=== PATIENT | male | born 1955 | race Caucasian/White ===

== ENCOUNTER 2016-04-28 05:05 | Inpatient (IN) | payer MEDICARE ==
[~2016-04-28] VITALS: Ht 182.9 cm; Wt 147.4 kg
[~2016-04-28 05:05] MED LIST: ARTHROTEC EC 71 EACH PO; BUPROPION HCL100 M1 PO; BUSPAR10 MG PO; CARDURA8 MG PO; CITRACAL + D E1 EACH PO; CYTOTEC100 MCG PO; DILAUDID2 MG PO; FLINTSTONE1 TAB.CHEW PO; FUROSEMIDE40 MG PO; HYDROCODONE-APA1 TAB PO; METOPROLOL TART50 MG PO; NEURONTIN 300300 MG PO; OMEPRAZOLE40 MG PO; OXYCODONE HCL5 MG PO; PHENERGAN25 M1 PO; PRINIVIL20 MG PO; RESTORIL15 MG PO; VICTOZA0.6 MG/0.1 SQ; VITAMIN B-1000 MCG/M IM; VOLTAREN75 MG PO; WELLBUTRIN100 MG PO; ZANAFLEX2 M1; ZANAFLEX4 MG PO; ZYLOPRIM300 MG PO
[2016-04-28] MEDS ORDERED: OXYCONTIN15 MG PO (05:49)
[2016-04-28 06:11] VITALS: BMI 44.2
--- NOTE | 2016-04-28 06:35 | NUR ---
7733 PATIENT HAS HEALING SORES TO LEFT LOWER LEG AND ANKLE AND FOOT. TOLD SURGERY
[2016-04-28 06:47] LABS: BASOPHILS 0.5 % (0.0-2.0); EOSINOPHILS 3.1 % (0-7); HEMATOCRIT 38.6 % (42.0-54.0); HEMOGLOBIN 12.6 g/dL (13.5-17.5); IMMATURE GRANULOCYTES 0.3 % (0-5); MCH 31.5 pg (26.0-34.0); MCHC 32.6 g/dL (31.0-37.0); MCV 96.5 fL (80.0-100.0); MEAN PLATELET VOLUME 9.5 fL (7.4-10.4); MONOCYTES 9.5 % (2-11); NEUTROPHILS 60.6 % (40-80); PLATELET COUNT 218 10x3/uL (130-400); RDW 12.4 % (11.5-14.5); WBC 7.8 10x3/uL (4.8-10.8)
[2016-04-28 07:06] LABS: APTT 27.2 SECONDS (22.8-39.4); INR 0.99 (0.85-1.17); PROTIME 12.9 SECONDS (11.6-15.0)
[2016-04-28 07:07] LABS: CALC OSMOLALITY 280 mosm/kg (275-300); CALCIUM 9.1 mg/dL (8.5-10.1); CARBON DIOXIDE 34.8 mmol/L (21.0-32.0); CHLORIDE - SERUM 103 mmol/L (98-107); CREATININE - SERUM 0.9 mg/dL (0.6-1.3); GLUCOSE 102 mg/dL (74-106); POTASSIUM - SERUM 4.7 mmol/L (3.5-5.1); SODIUM 141 mmol/L (136-145); UREA NITROGEN 12 mg/dL (7-18); eGFR NON AFRICAN AMERICAN > 90 mL/min (90-120)
[2016-04-28 07:39] LABS: APPEARANCE CLEAR (CLEAR); BACTERIA MODERATE /hpf (NONE SEEN); BILIRUBIN NEGATIVE (NEGATIVE); COLOR YELLOW (YELLOW); EPITHELIAL CELLS RARE /hpf (0-5); GLUCOSE NEGATIVE (NEGATIVE); KETONE NEGATIVE (NEGATIVE); LEUKOCYTE ESTERASE TRACE (NEGATIVE); MUCUS <1+ /lpf (NONE SEEN); NITRITE NEGATIVE (NEGATIVE); PROTEIN NEGATIVE (NEGATIVE); RED CELLS - URINE 0-5 /hpf (0-5); SPECIFIC GRAVITY 1.015 (1.005-1.020); WHITE CELLS - URINE 0-5 /hpf (0-5)
[2016-04-28 12:51] VITALS: BP 130/85
--- NOTE | 2016-04-28 12:53 | NUR ---
RECIEVED FROM RR AWAKE AND ALERT ORINETED X3 VITALS WITH IN NORMAL LIMITS. LUNGS CLEAR BILATERALLY HRRR NO ACUTE DISTRESS NOTED GREGG CATHETER PATENT TO CLEAR YELLOW URINE.
--- NOTE | 2016-04-28 14:40 | NUR ---
PT FAMILY AT BEDSIDE GIVEN PAIN MEDS PER ORDER WILL MONITOR VS WNL PERIPHERIAL PULSES IN TACT BILATERALLY
[2016-04-28 15:35] VITALS: BP 148/90
--- NOTE | 2016-04-28 17:52 | NUR ---
NO DISTRESS NOTED VOICES ALL NEEDS SURGICAL DRESSING IN TACT PAIN CONTROLLED AT THIS TIME.
[2016-04-28 19:00] VITALS: BP 132/77
[2016-04-29] VITALS (7 sets, daily range): BP systolic 75–182; BP diastolic 44–98; Ht 182.9 cm; Wt 147.4 kg
[2016-04-29 07:08] LABS: ALBUMIN 2.9 g/dL (3.4-5.0); ANION GAP 11.5 mmol/L (8-16); BILIRUBIN - TOTAL 0.7 mg/dL (0.2-1.3); CALCIUM 8.2 mg/dL (8.5-10.1); CARBON DIOXIDE 29.2 mmol/L (21.0-32.0); CREATININE - SERUM 1.6 mg/dL (0.6-1.3); POTASSIUM - SERUM 4.7 mmol/L (3.5-5.1); PROTEIN - SERUM 5.5 g/dL (6.4-8.2)
[2016-04-29 07:10] LABS: BASOPHILS 0.1 % (0.0-2.0); EOSINOPHILS 0.1 % (0-7); HEMATOCRIT 34.2 % (42.0-54.0); HEMOGLOBIN 10.9 g/dL (13.5-17.5); IMMATURE GRANULOCYTES 0.4 % (0-5); LYMPHOCYTES 16.8 % (15-50); MCH 31.6 pg (26.0-34.0); MCHC 31.9 g/dL (31.0-37.0); MEAN PLATELET VOLUME 9.6 fL (7.4-10.4); MONOCYTES 7.7 % (2-11); NEUTROPHILS 74.9 % (40-80); PLATELET COUNT 207 10x3/uL (130-400); RBC 3.45 10x6/uL (4.20-6.10); RDW 12.8 % (11.5-14.5)
[2016-04-29 07:11] LABS: MCV 99.1 fL (80.0-100.0); WBC 13.6 10x3/uL (4.8-10.8)
--- NOTE | 2016-04-29 08:13 | NUR ---
PT AWAKE AND ALERT ORINETED X 3 LUNGS CLEAR BILAT USING INSENTIVE SPIROMETER WELL HAS GOOD INSPIRATORY EFFORT. CPM TO LEFT KNEE SURGICAL DRESSING STILL IN PLACE PEDAL PULESE INTACT TO BILAT. FEET. TOLERATES MEDS WELL HELD LOPRESSOR AND CARDURA B/P 86/53 ORDER PER JENELLE BARROW TO HOLD MEDS
--- NOTE | 2016-04-29 09:15 | NUR ---
PT AWAKE AND ALERT NOTED TO BE CLAMMY WITH PALLOR SKIN NOTED VANCOMYCIN INFUSING AT 125 ML/HR B/P CHECKED 71/38 LAID HEAD DOWN TO 30 DEGREES ELEVATED FEET SOME COMPLAINED OF VISION DISTURBANCES AND UNCLEAR THINKING. B/P 68/40 STARTED FLUID BOLUS 300 CC PER HR AFTER 10 MIN B/P 70/42 STILL CLAMMY RAPID RESPONSE CALLED AT 0930
--- NOTE | 2016-04-29 10:00 | NUR ---
1000 CC BOLUS GIVEN OVER 1 HR PT BP 90/60 MANUAL. PT AWAKE AND ALERT AT BEDSIDE.
--- NOTE | 2016-04-29 11:30 | NUR ---
PT B/P 78/44 MANUAL PRESSURE NO URINE NOTED TO GREGG NOTIFIED COT ASSEMBLER AND DR CORONADO OF CONDITION PT AWAKE AND PLESANT REMAINS AT SIDE.
--- NOTE | 2016-04-29 11:37 | NUR ---
Prescreen for IRF order received. Patient has [employer] Insurance & will require a Preauth prior to admit to IRF. Will begin Preauth process. Thank you for this referral! Rosemary Kirk RN Rehab [facility]
[2016-04-29 11:54] LABS: BASOPHILS 0.1 % (0.0-2.0); EOSINOPHILS 0.8 % (0-7); HEMOGLOBIN 9.9 g/dL (13.5-17.5); IMMATURE GRANULOCYTES 0.6 % (0-5); LYMPHOCYTES 21.6 % (15-50); MCH 31.4 pg (26.0-34.0); MCHC 31.9 g/dL (31.0-37.0); MCV 98.4 fL (80.0-100.0); MEAN PLATELET VOLUME 9.6 fL (7.4-10.4); MONOCYTES 8.6 % (2-11); NEUTROPHILS 68.3 % (40-80); PLATELET COUNT 205 10x3/uL (130-400); RBC 3.15 10x6/uL (4.20-6.10); RDW 12.9 % (11.5-14.5); WBC 13.4 10x3/uL (4.8-10.8)
--- NOTE | 2016-04-29 12:30 | NUR ---
NEW ORDER FOR 1 LITER FLUID BOLUS PRESSURE BAGGED IN
--- NOTE | 2016-04-29 13:00 | OP ---
PATIENT NAME: KRISHNA NICK MEDICAL RECORD: [id number] :56 LOCATION:D.[id number] ADMISSION DATE:04/28/16 SURGEON: CHARANJIT CORONADO MD DATE OF OPERATION: 04/28/2016 Orthopedic Surgery Operative Note PREOPERATIVE DIAGNOSIS: Bilateral degenerative arthritis of the knees. POSTOPERATIVE DIAGNOSIS: Bilateral degenerative arthritis of the knees. PROCEDURES: 1. Right total knee arthroplasty. 2. Left total knee arthroplasty. SURGEON: Charanjit Coronado MD ANESTHESIA: General. INTRAOPERATIVE COMPLICATIONS: None. SUMMARY OF PATHOLOGIC FINDINGS: The patient did have osteoarthritis of both medial joints as well as patellofemoral joint consistent with preop diagnosis. IMPLANTS USED: Tena triathlon total knee arthroplasty, size 7, distal femur bilaterally, size 9, polyethylene inserts bilaterally, size 7, tibial base plates bilaterally, size 36, patellar resurfacing implants bilaterally. OPERATIVE SUMMARY IN DETAIL: After obtaining the appropriate preoperative orthopedic surgery consent as well as anesthetic consultation, evaluation and clearance, the patient was brought to the operating room and placed in the operating table in supine position. After adequate general laryngeal mask airway was administered, tourniquet was placed about the proximal aspect of bilateral lower extremities. Bilateral lower extremities were then prepped and draped in a routine sterile fashion. Left leg was approached first. The left leg was elevated and exsanguinated, tourniquet inflated to 350 mmHg. Routine midline incision was taken down for paramedian arthrotomy. Distal femur was exposed. Soft tissue excision was done in the usual fashion. Distal femoral intramedullary guide hole was created for distal femoral intramedullary guided cuts. Having completed this, the proximal tibia was exposed in its entirety. Soft tissue was excised and intramedullary guide hole was again created for intramedullary guided proximal tibial cutting. The proximal tibia on the left side measurements were taken. Distal femoral chamfer cuts were made. Following this, trials were inserted, ranged and thought to be stable in all planes. Final distal femoral and proximal tibial preparations were made followed by excision of the arthritic surface of the patella and final patellar preparations were made followed by pulsatile lavage irrigation. Final components were cemented into place. After all excess cement was removed, after cement was allowed to harden, the knee was taken through a range of motion and found to be stable in all planes with good patellar tracking. Paramedian arthrotomy was closed with #2 Ethibond followed by #1 Vicryl, 2-0 Vicryl and skin sahra. This incision was then covered with sterile dressing. Tourniquet was deflated. Attention was then turned to the right side. The right side was elevated and exsanguinated, tourniquet inflated to 350 mmHg. Routine midline incision was taken down and paramedian arthrotomy was cut. Distal femur was exposed. Soft OPERATIVE REPORT [id number] KRISHNA NICK tissue excision was done in the usual fashion followed by distal intramedullary guide hole creation for distal intramedullary guided distal femoral cuts. Proximal tibia was then completely exposed. Soft tissue excision was followed by guidewire hole creation and proximal tibial cutting using intramedullary guidance. Measurements were again taken. Chamfer cuts were taken. Trials were put into place. The knee was taken through range of motion and found to be stable in all planes. Distal femoral and proximal tibial preparations were followed by excision of the articular aspect of the degenerative patella. Final patellar preparations were made followed by pulsatile lavage irrigation. This was then followed by implantation of the final components. All excess cement was removed. After the cement was allowed to harden, the knee was taken through a range of motion and found to be stable in all planes including patellofemoral excursion. The paramedian arthrotomy was closed with #2 Ethibond followed by #1 Vicryl, 2-0 Vicryl and skin sahra. Sterile dressings were applied. At this point, the right tourniquet was deflated. The patient was awakened, LMA was removed. He was taken to recovery room in stable condition. All final needle and sponge counts were correct. TRANSINT:[id number] Voice Confirmation ID: [id number] DOCUMENT ID: [id number] CHARANJIT CORONADO MD at 1300 CC: [id number] DICTATION DATE: 04/28/16 1159 MANAGER ATHLETICS: 04/28/16 1250 ADM IN [place] [id number] [place] [address]
[2016-04-29 14:32] LABS: ALBUMIN 2.7 g/dL (3.4-5.0); ANION GAP 10.7 mmol/L (8-16); BILIRUBIN - TOTAL 0.81 mg/dL (0.2-1.3); CALCIUM 7.8 mg/dL (8.5-10.1); CARBON DIOXIDE 30.8 mmol/L (21.0-32.0); CREATININE - SERUM 2.5 mg/dL (0.6-1.3); POTASSIUM - SERUM 4.5 mmol/L (3.5-5.1); PROTEIN - SERUM 5.1 g/dL (6.4-8.2)
[2016-04-29 14:48] LABS: HEMATOCRIT 29.2 % (42.0-54.0); HEMOGLOBIN 9.5 g/dL (13.5-17.5)
--- NOTE | 2016-04-29 15:05 | NUR ---
3RD LITER OF FLUID BEING PRESSURED IN AT THIS TIME 2ND IV SITED TO INSIDE OF RIGHT FORARM 20 GA STAT LABS DRAWN AT THAT TIME B/P 118/58 PER MANUAL CUFF HAS HAD TOTAL OUTPUT OF 40 CC
--- NOTE | 2016-04-29 15:20 | NUR ---
Rehab Note- Awaiting PT & OT Eval for PreAuth to [employer]. Continue to follow patient at this time. Rosemary Kirk RN Clinical Liaison, Rehab Care/[place]
--- NOTE | 2016-04-29 16:06 | NUR ---
Rehab Preauth cannot be submitted to [facility] until the PT and OT evals have been done and documented. At this time neither have been done. Rehab will follow up on Monday. Jennifer Mayorga RN Clinical Liaison, Rehab
--- NOTE | 2016-04-29 16:08 | NUR ---
LYING IN BED,WITHOUT DISTRESS.CALL LIGHT IN REACH
--- NOTE | 2016-04-29 16:30 | NUR ---
4TH LITER OF FLUID PRESSURING IN AT THIS TIME B/P 100/50 MANUAL
[2016-04-29 16:43] LABS: ALBUMIN 2.6 g/dL (3.4-5.0); ANION GAP 10.8 mmol/L (8-16); BILIRUBIN - TOTAL 0.7 mg/dL (0.2-1.3); CALCIUM 7.5 mg/dL (8.5-10.1); CARBON DIOXIDE 29.8 mmol/L (21.0-32.0); CREATININE - SERUM 2.6 mg/dL (0.6-1.3); POTASSIUM - SERUM 4.6 mmol/L (3.5-5.1); PROTEIN - SERUM 5.1 g/dL (6.4-8.2)
--- NOTE | 2016-04-29 17:00 | NUR ---
PT MAKING URINE AT THIS TIME IN GREGG DARK URINE CLEARING THE MORE VOIDING NOTED IN GREGG BAG. HAS HAD NO URINE OUTPUT ALL DAY UNTIL NOW
--- NOTE | 2016-04-29 18:20 | NUR ---
GREGG EMPTIED 850 ML URINE EMTIED FROM GREGG
--- NOTE | 2016-04-29 18:51 | NUR ---
B/P 108/52 MANUAL PRESSURE
[2016-04-30] VITALS: BP 104/71
--- NOTE | 2016-04-30 02:40 | NUR ---
ASSESSED AT THE BEGINNING OF THE SHIFT. PT IS ALERT AND ORIENTED, ABLE TO VERBALIZE NEEDS. REMAINS AT THE BEDSIDE. HIS BLOOD PRESSURE HAS REMAINED BETTER THIS EVENING BUT HIS PAIN IS NOT BEING CONTROLLED WELL. WE CALLED THE RENAL DOCTOR TO GET A PAIN MED THAT WOULD NOT WORK AGAINST HIS RENAL PROBLEMS AND HE HAS RECEIVED BUPRENEX ORDERED WHICH HE FEELS IS NOT HELPING THE PAIN. WE HAVE ALSO GIVEN HIM PERCOCET TO TRY AND KEEP HIM COMFORTABLE. HE IS ABLE TO MOVE ABOUT THE BED FOR COMFORT AND WE ASSIST IF HE NEEDS HELP WITH REPOSITIOONING. THE GREGG CATH IS PULLING ALOT OF URINE OFF AND IT IS CLEAR. THE BED IS LOW, RAILS UP X'S 2 WITH THE CALL LIGHT AT HAND.
[2016-04-30 04:00] VITALS: BP 180/98
[2016-04-30 05:12] LABS: BASOPHILS 0.1 % (0.0-2.0); EOSINOPHILS 0.2 % (0-7); HEMATOCRIT 30.9 % (42.0-54.0); HEMOGLOBIN 10.2 g/dL (13.5-17.5); IMMATURE GRANULOCYTES 0.3 % (0-5); LYMPHOCYTES 9.6 % (15-50); MCH 31.9 pg (26.0-34.0); MCV 96.6 fL (80.0-100.0); MEAN PLATELET VOLUME 9.6 fL (7.4-10.4); MONOCYTES 8.4 % (2-11); NEUTROPHILS 81.4 % (40-80); PLATELET COUNT 180 10x3/uL (130-400); RDW 12.4 % (11.5-14.5); WBC 13.7 10x3/uL (4.8-10.8)
[2016-04-30 05:23] LABS: % SATURATION 7 % (15-55); IRON 13 ug/dl (35-150); TOTAL IRON BIND CAPACITY 177 ug/dl (260-445); UNSAT IRON BIND CAPACITY 164 ug/dl (150-375)
[2016-04-30 05:37] LABS: CREATININE - URINE 38.7 mg/dL (30-125); PROTEIN - URINE 16.9 mg/dL (0.0-11.9)
[2016-04-30 05:41] LABS: ALBUMIN 2.6 g/dL (3.4-5.0); ANION GAP 9.8 mmol/L (8-16); BILIRUBIN - TOTAL 0.96 mg/dL (0.2-1.3); CARBON DIOXIDE 28.4 mmol/L (21.0-32.0); MAGNESIUM - SERUM 1.4 mg/dL (1.8-2.4); PHOSPHOROUS 2.8 mg/dL (2.5-4.9); POTASSIUM - SERUM 4.2 mmol/L (3.5-5.1); PROTEIN - SERUM 5.7 g/dL (6.4-8.2)
[2016-04-30 05:42] LABS: CREATININE - SERUM 1.1 mg/dL (0.6-1.3)
--- NOTE | 2016-04-30 07:30 | NUR ---
RECIEVED PT DURING WALKING ROUNDS PT IN BED WITH COMPLAINTS OF PAIN OF A 10 ON A SCALE OF 1-10. PAGED PUSHPA ALMANZAR FOR PAIN MEDICATION. ASSESSMENT DONE PER FLOWSHEET. BED IN LOW POSITION AND CALL LIGHT WITHIN REACH. WILL CONTINUE TO MONITOR.
[2016-04-30 08:25] VITALS: BP 170/83
--- NOTE | 2016-04-30 08:25 | NUR ---
RECIEVED ORDERS TO RESTART DILUADID CARD DECORATOR AND GIVE 1MG BOLUS OF DILAUDID. WILL ADMINISTER PER ORDER.
--- NOTE | 2016-04-30 08:50 | NUR ---
CPM ON BILATERAL LEGS AT THIS TIME.
--- NOTE | 2016-04-30 10:00 | NUR ---
REMOVED PREVIOUS IV IN THE RIGHT FOREARM DUE TO IRRITATION REPORTED BY THE PT. CATH INTACT, BED IN LOW POSITION AND CALL LIGHT WITHIN REACH. WILL CONTINUE TO MONITOR.
--- NOTE | 2016-04-30 12:25 | NUR ---
AWAKE AND ALERT. ORIENTED X3. NO C/O AT THIS TIME. DRESSING TO RIGHT KNEE IS DRY AND INTACT. REPORTS PAIN IMPROVED AT THIS TIME. DENIES NEEDS. AT BEDSIDE.
[2016-04-30 12:48] VITALS: BP 164/81
[2016-04-30 16:26] VITALS: BP 157/79
[2016-04-30 20:00] VITALS: BP 154/78
--- NOTE | 2016-04-30 20:14 | NUR ---
PT SEEN AND ASSESSED AT 1945. COMPLAINTS OF PAIN BILAT KNEES OF 7-STATES PBX MANAGER HELPS ALOT. ENCOURAGED PT TO PUSH BUTTON NEEDED. BOTH FEET WARM AND PINK AND ABLE TO MOVE TOES. IN CPM X 2 AT MOMENT. ICE NOTED TO BOTH KNEES. GREGG DRAINING YELLOW URINE. AT BEDSIDE
[2016-05-01] VITALS: BP 122/66
--- NOTE | 2016-05-01 00:49 | NUR ---
WAS MEDICATED WTIH APAP 650 MG D/T ELEVATED TEMP. WILL RECHECK IN ONE HOUR. C/L IN REACH AT BEDSIDE.
--- NOTE | 2016-05-01 01:40 | NUR ---
TEMP. WAS RECHECKED THIS TIME 98.5. REMAIN AT BEDSIDE. C/L IN REACH
[2016-05-01 04:00] VITALS: BP 149/78
[2016-05-01 06:22] LABS: BASOPHILS 0.1 % (0.0-2.0); EOSINOPHILS 0.8 % (0-7); HEMATOCRIT 29.8 % (42.0-54.0); HEMOGLOBIN 9.6 g/dL (13.5-17.5); IMMATURE GRANULOCYTES 0.3 % (0-5); LYMPHOCYTES 15.3 % (15-50); MCHC 32.2 g/dL (31.0-37.0); MCV 96.1 fL (80.0-100.0); NEUTROPHILS 75.5 % (40-80); PLATELET COUNT 197 10x3/uL (130-400); RDW 12.3 % (11.5-14.5); WBC 11.4 10x3/uL (4.8-10.8)
[2016-05-01 06:39] LABS: ALBUMIN 2.3 g/dL (3.4-5.0); ALKALINE PHOSPHATASE 49 U/L (46-116); ALT (SGPT) 17 U/L (10-68); BILIRUBIN - TOTAL 1.15 mg/dL (0.2-1.3); CALC OSMOLALITY 265 mosm/kg (275-300); CALCIUM 8.5 mg/dL (8.5-10.1); CARBON DIOXIDE 31.7 mmol/L (21.0-32.0); CHLORIDE - SERUM 101 mmol/L (98-107); GLUCOSE 112 mg/dL (74-106); POTASSIUM - SERUM 3.9 mmol/L (3.5-5.1); PROTEIN - SERUM 5.8 g/dL (6.4-8.2); SODIUM 133 mmol/L (136-145); UREA NITROGEN 11 mg/dL (7-18)
[2016-05-01 06:41] LABS: CREATININE - SERUM 0.8 mg/dL (0.6-1.3); eGFR NON AFRICAN AMERICAN > 90 mL/min (90-120)
--- NOTE | 2016-05-01 07:40 | NUR ---
PATIENT RECEIVED ALERT IN BED. CPM ON BILATERALLY. AT BEDSIDE. SIDE RAILS UP X2. BED IN LOW POSITION. CALL LIGHT IN REACH. WILL CONTINUE TO MONITOR.
[2016-05-01 07:56] VITALS: BP 164/85
--- NOTE | 2016-05-01 08:45 | NUR ---
PATIENT ALERT IN BED WITH PRESENT. NO SIGNS OF DISTRESS NOTED. SCHEDULED MEDICATION ADMINISTERED. PRESENT. SIDE RAILS UP X2. BED IN LOW POSITION. CALL LIGHT IN REACH.
--- NOTE | 2016-05-01 10:40 | NUR ---
SITTING UP IN CHAIR ALERT. GREGG D/C PER ORDER. 600CC URINE REMAINED IN COLLECTION BAG. CLEAN URINAL PROVIDED TO PATIENT.
--- NOTE | 2016-05-01 12:50 | NUR ---
PATIENT IN BED ALERT. NO SIGNS OF DISTRESS NOTED. CPM ON BILATERALLY. DENIES NEEDS. SIDE RAILS UP X2. BED IN LOW POSITION. CALL LIGHT AND MARINE ENGINE MACHINIST BUTTON IN REACH.
[2016-05-01 13:02] VITALS: BP 131/77
--- NOTE | 2016-05-01 14:30 | NUR ---
IV TO RIGHT HAND INFILTRATED. D/C BY YOUNG SIMONS. WARM COMPRESS APPLIED
--- NOTE | 2016-05-01 15:00 | NUR ---
20 GAUGE IV SITED TO RIGHT FOREARM X1 ATTEMPT. FLUSHES EASY WITH BRISK BLOOD RETURN PRESENT. SECURED WITH TAPE AND TEGADERM. IVF INFUSING WITHOUT DIFFICULTY.
--- NOTE | 2016-05-01 15:45 | NUR ---
IV TO RIGHT FOREARM LEAKING. IV D/C WITH CATH TIP INTACT. SITE COVERED WITH GAUZE AND TAPE. NEW 22 GAUGE IV SITED TO RIGHT UPPER ARM X1 ATTEMPT. FLUSHES EASY. BRISK BLOOD RETURN PRESENT. WELL TOLERATED. IVF INFUSING WITHOUT DIFFICULTY. WILL CONTINUE TO MONITOR.
[2016-05-01 15:56] VITALS: BP 170/63
--- NOTE | 2016-05-01 18:20 | NUR ---
PATIENT ASSISTED BACK TO BED FROM [facility] ASSIST X3. IV CAME OUT WITH CATH TIP INTACT.
--- NOTE | 2016-05-01 19:10 | NUR ---
REC'D IN BED AWAKE AND ALERT. RESP EVEN AND UNLABORED WITH NO DISTRESS NOTED. CAN MAKE NEEDS WANTS KNOWN. C/O PAIN RATING 7/10 ON PAIN SCALE. ASSESSMENT COMPLETED. AT BEDSIDE. DRESSING INTACT TO BILATERAL LOWER EXT. WILL CONTINUE TO OBSERVE FOR NEEDS. C/L IN REACH AT BEDSIDE.
[2016-05-01 21:00] VITALS: BP 154/85
--- NOTE | 2016-05-01 23:37 | NUR ---
WAS MEDICATED AT THIS TIME FOR C/O ENID KNEE PAIN WITH PERCOCET PER ORDERS. C/L AND AT BEDSIDE.
[2016-05-02 01:00] VITALS: BP 104/57
--- NOTE | 2016-05-02 03:42 | NUR ---
PT WAS MEDICATED WITH NORCO AT THIS TIME FOR C/O BILATERAL KNEE PAIN RATING 8/10 ON PAIN SCALE. REMAIN AT BEDSIDE. C/L IN REACH
[2016-05-02 04:00] VITALS: BP 154/81
--- NOTE | 2016-05-02 06:05 | NUR ---
PT IN BED WITH NO NEEDS. DRESSINGS TO BILATERAL KNEES C/D/I. SCD'S ON. CPM'S TO BILATERAL KNEES ON. PEDAL PULSES PRESENT. NO IV AT THIS TIME. TELEMETRY ON. FAMILY AT BEDSIDE. SIDE RAILS ARE UP X 2. BED IS LOW. CALL LIGHT IN REACH.
[2016-05-02 06:54] LABS: BASOPHILS 0.1 % (0.0-2.0); EOSINOPHILS 1.1 % (0-7); HEMOGLOBIN 8.8 g/dL (13.5-17.5); IMMATURE GRANULOCYTES 0.3 % (0-5); LYMPHOCYTES 15.8 % (15-50); MCH 31.4 pg (26.0-34.0); MCHC 32.6 g/dL (31.0-37.0); MCV 96.4 fL (80.0-100.0); MONOCYTES 6.1 % (2-11); NEUTROPHILS 76.6 % (40-80); PLATELET COUNT 227 10x3/uL (130-400); RDW 12.4 % (11.5-14.5); WBC 10.5 10x3/uL (4.8-10.8)
--- NOTE | 2016-05-02 07:05 | NUR ---
PATIENT RECEIVED ALERT IN BED. NO SIGNS OF DISTRESS NOTED. CPM ON BILATERALLY. C/O PAIN 01/08. SIDE RAILS UP X2. BED IN LOW POSITION. CALL LIGHT IN REACH. AT BEDSIDE.
--- NOTE | 2016-05-02 07:12 | NUR ---
1 TAB PERCOCET GIVEN PER PRN ORDER FOR PAIN 01/08. NO OTHER NEEDS VOICED. CALL LIGHT IN REACH.
[2016-05-02 07:21] LABS: ALBUMIN 2.2 g/dL (3.4-5.0); ALKALINE PHOSPHATASE 48 U/L (46-116); BILIRUBIN - TOTAL 1.08 mg/dL (0.2-1.3); CALCIUM 8.5 mg/dL (8.5-10.1); CARBON DIOXIDE 31.2 mmol/L (21.0-32.0); CHLORIDE - SERUM 103 mmol/L (98-107); CREATININE - SERUM 0.8 mg/dL (0.6-1.3); GLUCOSE 104 mg/dL (74-106); POTASSIUM - SERUM 3.9 mmol/L (3.5-5.1); PROTEIN - SERUM 5.7 g/dL (6.4-8.2); SODIUM 139 mmol/L (136-145); eGFR NON AFRICAN AMERICAN > 90 mL/min (90-120)
[2016-05-02 07:24] LABS: ALT (SGPT) 24 U/L (10-68); CALC OSMOLALITY 278 mosm/kg (275-300); UREA NITROGEN 15 mg/dL (7-18)
--- NOTE | 2016-05-02 08:03 | NUR ---
SITTING UP ON SIDE OF BED ALERT WITH PRESENT. NO SIGNS OF DISTRESS NOTED. SCHEDULED MEDICATION ADMINISTERED. DENIES NEEDS. SIDE RAILS UP X2. BED IN LOW POSITION. CALL LIGHT IN REACH.
[2016-05-02 08:36] VITALS: BP 131/80
--- NOTE | 2016-05-02 09:15 | NUR ---
* Is the patient Alert and Oriented? Yes 0 * How many steps to enter\exit or inside your home? 2 0 * PCP Dr. Miranda 0 * Pharmacy [facility] on [address] 0 * Preadmission Environment Home with Family 0 * ADLs Independent 0 * Equipment Cane Crutch Rolling Walker 0 * List name and contact numbers for known caregivers / representatives who currently or will assist patient after discharge: Spouse - Michelle Moody [phone] 0 * Additional services required to return to the preadmission environment? Yes 0 * Can the patient safely return to the preadmission environment? Yes 0 * Has this patient been hospitalized within the prior 30 days at any hospital? No 05/02/2016 9:16 DCP: Discharge Planning Patient Name: KRISHNA MOODY Admission Status: Elective Accout number: [id number] Admission Date: 04-28-2016 : 1955 Admission Diagnosis:BILATERAL PRIMARY OSTEOARTHRITIS OF KNEE Attending: ZACHARY Current LOS: 4 Anticipated DC Date: 05-03-2016 Planned Disposition: Inpatient Rehab Primary Insurance: [employer] CHOICE PPO [facility] Discharge Planning Comments: CM met with patient & spouse to assess dc plans/needs. Prior to admission, patient was independent with all ADL's & IADL's. He has a walker, cane & crutches at home. He will require rehab prior to discharging home. His first option is inpatient rehab here at [facility]. Prescreen in progress. Waiting on OT Eval. Once completed, rehab will submit screen for authorization - however, [employer] is closed until tomorrow for the Hol. Explained to them they need to be thinking about SNF's as well. CM will follow.
--- NOTE | 2016-05-02 11:27 | NUR ---
SITTING UP IN CHAIR AT BEDSIDE ALERT. NO SIGNS OF DISTRESS NOTED. C/O PAIN 01/08. 1 TAB PERCOCET PER PRN ORDER. ICE PACKS TO BILATERAL KNEES. NO FURTHER NEEDS VOICED. CALL LIGHT IN REACH. PRESENT
[2016-05-02 12:28] VITALS: BP 118/65
--- NOTE | 2016-05-02 12:50 | NUR ---
PATIENT ALERT IN BED. C/O NAUSEA. ZOFRAN ADMINISTERED PER PRN ORDER. NO FURTHER NEEDS VOICED. SIDE RAILS UP X2. BED IN LOW POSITION. CALL LIGHT IN REACH. AT BEDSIDE.
--- NOTE | 2016-05-02 14:52 | NUR ---
ALERT IN BED WATCHING TV. NO SIGNS OF DISTRESS NOTED. C/O PAIN 01/08. 1 TAB NORCO ADMINISTERED PER PRN ORDER. SIDE RAILS UP X2. BED IN LOW POSITION. CALL LIGHT IN REACH.
--- NOTE | 2016-05-02 15:50 | NUR ---
BILATERAL CPM PLACED ON PATIENT AT THIS TIME. DENIES NEEDS. PRESENT. SIDE RAILS UP X3. BED IN LOW POSITION. CALL LIGHT IN REACH.
[2016-05-02 16:03] LABS: APPEARANCE CLEAR (CLEAR); BILIRUBIN NEGATIVE (NEGATIVE); COLOR DK YELLOW (YELLOW); GLUCOSE NEGATIVE (NEGATIVE); KETONE NEGATIVE (NEGATIVE); LEUKOCYTE ESTERASE TRACE (NEGATIVE); NITRITE NEGATIVE (NEGATIVE); PROTEIN NEGATIVE (NEGATIVE)
--- NOTE | 2016-05-02 16:03 | NUR ---
All information was submitted to [facility] for a inpatient rehab authorization. The Jacqueline Saldana has been made aware. Jennifer Mayorga RN Clinical Liaison, Rehab
[2016-05-02 16:05] LABS: BACTERIA MODERATE /hpf (NONE SEEN); EPITHELIAL CELLS 0-5 /hpf (0-5); GRANULAR CAST OCC /lpf (NONE SEEN); HYALINE CAST 0-5 /lpf (NONE SEEN); MUCUS >1+ /lpf (NONE SEEN); RED CELLS - URINE 0-5 /hpf (0-5)
[2016-05-02 16:45] VITALS: BP 131/63
--- NOTE | 2016-05-02 17:15 | NUR ---
PATIENT ALERT IN BED. NO SIGNS OF DISTRESS NOTED. 1 TAB PERCOCET ADMINISTERED PER PRN ORDER. NO FURTHER NEEDS VOICED. SIDE RAILS UP X2. BED IN LOW POSITION. CALL LIGHT IN REACH.
--- NOTE | 2016-05-02 19:31 | NUR ---
PATIENT LYING FLAT WITH FAMILY AT BEDSIDE. PATIENT STATED HIS PAIN IS AN 8. PAIN MEDS GIVEN.
[2016-05-02 21:00] VITALS: BP 163/86
[2016-05-03 01:00] VITALS: BP 124/53
[2016-05-03 04:00] VITALS: BP 144/74
[2016-05-03 05:08] LABS: BASOPHILS 0.4 % (0.0-2.0); EOSINOPHILS 2.6 % (0-7); HEMATOCRIT 26.9 % (42.0-54.0); IMMATURE GRANULOCYTES 0.3 % (0-5); LYMPHOCYTES 18.8 % (15-50); MCHC 33.5 g/dL (31.0-37.0); MCV 95.7 fL (80.0-100.0); MEAN PLATELET VOLUME 9.6 fL (7.4-10.4); MONOCYTES 7.3 % (2-11); NEUTROPHILS 70.6 % (40-80); PLATELET COUNT 269 10x3/uL (130-400); RBC 2.81 10x6/uL (4.20-6.10); RDW 12.4 % (11.5-14.5); WBC 9.7 10x3/uL (4.8-10.8)
[2016-05-03 05:23] LABS: ALBUMIN 2.3 g/dL (3.4-5.0); ALKALINE PHOSPHATASE 49 U/L (46-116); BILIRUBIN - TOTAL 1.47 mg/dL (0.2-1.3); CALC OSMOLALITY 280 mosm/kg (275-300); CALCIUM 8.6 mg/dL (8.5-10.1); CARBON DIOXIDE 31.3 mmol/L (21.0-32.0); CHLORIDE - SERUM 103 mmol/L (98-107); CREATININE - SERUM 0.8 mg/dL (0.6-1.3); GLUCOSE 102 mg/dL (74-106); POTASSIUM - SERUM 3.6 mmol/L (3.5-5.1); PROTEIN - SERUM 5.9 g/dL (6.4-8.2); SODIUM 140 mmol/L (136-145); UREA NITROGEN 17 mg/dL (7-18); eGFR NON AFRICAN AMERICAN > 90 mL/min (90-120)
[2016-05-03 05:38] LABS: ALT (SGPT) 34 U/L (10-68)
--- NOTE | 2016-05-03 07:30 | NUR ---
RECIEVED PT DURING WALKING ROUNDS. PT ON CMP AT THIS TIME. COMPLAINTS OF PAIN OF A 10 ON A SCALE OF 1-10. PAIN MEDICATION TO BE GIVEN PER ORDER. ASSESSMENT DONE PER FLOWSHEET. BED IN LOW POSITION AND CALL LIGHT WITHIN REACH. WILL CONTINUE TO MONITOR.
[2016-05-03 08:00] VITALS: BP 160/86
--- NOTE | 2016-05-03 10:30 | NUR ---
PT SITTING UP IN CHAIR. HAD PT USE INCENTICE SPIROMETER WHILE NURSE WAS IN THE ROOM. PT USED CORRECTLY. CALL LIGHT WITHIN REACH. WILL CONTINUE TO MONITOR.
[2016-05-03 11:44] VITALS: BP 122/74
--- NOTE | 2016-05-03 15:32 | NUR ---
PT SEEN FOR OFFICE ASSOCIATE. COMPLAINING OF PAIN TO BILAT KNEES 01/08. BILAT DRESSINGS TO KNEES ARE BOTH CLEAN DRY AND INTACT. ABLE TO MOVE FEET WELL-BILAT FEET AND TOES WARM AND PINK. CALL LIGHT IN PLACE. AT BEDSIDE
[2016-05-03 15:58] VITALS: BP 147/78
--- NOTE | 2016-05-03 16:56 | NUR ---
Rehab Note- Continue to follow at this time. Awaiting PreAuth from [employer]. Faxed OT Eval this AM. Message left from Siomara with [employer] stating that other clinical information had not been received on patient which was faxed on 05/02/16 after PT eval was completed. Refaxed all requested information to [phone]. Continue to await PreAuth for IRF stay. Thank you. Rosemary Kirk RN Clinical Liaison, Rehab Care/[facility]
--- NOTE | 2016-05-03 18:35 | NUR ---
CPM MACHINE ON AT THIS TIME ON BILATERAL KNEES. WILL CONTINUE TO MONITOR.
--- NOTE | 2016-05-03 19:55 | NUR ---
PATIENT STATED HE WAS HAVING PAIN 12/08. I BROUGHT THE PATIENT A PAIN PILL.
[2016-05-03 21:00] VITALS: BP 157/88
[2016-05-04 01:00] VITALS: BP 152/78
[2016-05-04 07:55] VITALS: BP 137/62
[2016-05-04] MEDS ORDERED: ELIQUIS2.5 MG PO (08:19)
[2016-05-04] MEDS ORDERED: HYDROCODONE-APA1 TAB PO (08:24)
--- NOTE | 2016-05-04 08:37 | NUR ---
PT SEEN AT 0745-COMPLAINS OF MILD PAIN TO BILAT KNEES. TOO EARLY FOR PAIN MEDS BUT WILL MONITOR. DRESSINGS TO BILAT KNEES CLEAN DRY AND INTACT. BOTH KNEES IN CPM AT MOMENT. HOPING FOR DISCHARGE TO REHAB TODAY. SPOUSE ASLEEP IN ROOM. CALL LIGHT IN REACH
[2016-05-04 12:05] VITALS: BP 161/68
[2016-05-04 13:09] LABS: BASOPHILS 0.4 % (0.0-2.0); EOSINOPHILS 2.3 % (0-7); HEMATOCRIT 28.6 % (42.0-54.0); HEMOGLOBIN 9.2 g/dL (13.5-17.5); IMMATURE GRANULOCYTES 0.4 % (0-5); LYMPHOCYTES 13.9 % (15-50); MCH 31.5 pg (26.0-34.0); MCHC 32.2 g/dL (31.0-37.0); MEAN PLATELET VOLUME 9.7 fL (7.4-10.4); RBC 2.92 10x6/uL (4.20-6.10); RDW 12.6 % (11.5-14.5); WBC 10.1 10x3/uL (4.8-10.8)
[2016-05-04 13:25] LABS: MCV 97.9 fL (80.0-100.0); PLATELET COUNT 349 10x3/uL (130-400)
[2016-05-04 13:30] LABS: ALBUMIN 2.5 g/dL (3.4-5.0); ALKALINE PHOSPHATASE 56 U/L (46-116); ALT (SGPT) 36 U/L (10-68); CALC OSMOLALITY 279 mosm/kg (275-300); CALCIUM 8.6 mg/dL (8.5-10.1); CARBON DIOXIDE 31.8 mmol/L (21.0-32.0); CHLORIDE - SERUM 101 mmol/L (98-107); CREATININE - SERUM 0.8 mg/dL (0.6-1.3); GLUCOSE 121 mg/dL (74-106); POTASSIUM - SERUM 3.9 mmol/L (3.5-5.1); PROTEIN - SERUM 5.4 g/dL (6.4-8.2); SODIUM 139 mmol/L (136-145); UREA NITROGEN 14 mg/dL (7-18); eGFR NON AFRICAN AMERICAN > 90 mL/min (90-120)
--- NOTE | 2016-05-04 15:16 | NUR ---
05/04/2016 15:11 DCP: Discharge Planning Rec'd call from Rosemary with [facility] inpatient rehab - [facility] has denied authorization for inpatient rehab. Discussed with patient & spouse - they want to go home with home health. Call placed to I[facility]. Orders rec'd for home health & DME. RAYRAY signed for [facility]. Referral faxed & called to Dayanara with [facility]. CPM ordered through [facility] & will be delivered this evening to the home.
[2016-05-04 15:38] VITALS: BP 162/44
--- NOTE | 2016-05-04 18:15 | NUR ---
PT DISCHARGED PER WHEELCHAIR WITH WALKER TO FRONT DOOR WITH BELONGINGS
== END 2016-05-04 18:16 | disposition home health service (06) | DRG 461 ==
LOC: D.MS 05:05 → D.SDCHOLD 05:05 → D.MS 12:12
PROVIDERS: Family Medicine; Family Medicine Adult Medicine; Internal Medicine Nephrology; ADMIT Orthopaedic Surgery
PROC: 0SRC0J9 Replacement of Right Knee Joint with Synthetic Substitute, Cemented, Open Approach (ICD-10-PCS; 2016-04-28)
PROC: 0SRD0J9 Replacement of Left Knee Joint with Synthetic Substitute, Cemented, Open Approach (ICD-10-PCS; principal; 2016-04-28 07:30)
DX: M17.0 Bilateral primary osteoarthritis of knee (principal); N17.0 Acute kidney failure with tubular necrosis; D62 Acute posthemorrhagic anemia; Z68.41 Body mass index [BMI] 40.0-44.9, adult; I10 Essential (primary) hypertension; G47.33 Obstructive sleep apnea (adult) (pediatric); I95.89 Other hypotension; E66.9 Obesity, unspecified

== ENCOUNTER → 2017-12-13 10:50 | Outpatient (CLI) | payer MEDICARE ==
[2016-04-29 13:33] VITALS: BMI 44.1
[~2017-12-13 10:50] MED LIST changes: +ELIQUIS2.5 MG PO; +OXYCONTIN15 MG PO
== END | disposition home or self-care (01) ==
LOC: D.US 12-11 09:00
DX: E40 Kwashiorkor (principal); R80.2 Orthostatic proteinuria, unspecified; N28.1 Cyst of kidney, acquired; Z68.42 Body mass index [BMI] 45.0-49.9, adult

== ENCOUNTER 2018-01-29 17:38 | Observation (INO) | payer MEDICARE ==
[~2018-01-29] VITALS: Ht 182.9 cm; Wt 146.8 kg
[2018-01-29 18:08] LABS: BASOPHILS 0.5 % (0-2); EOSINOPHILS 1.5 % (0-7); HEMATOCRIT 33.6 % (42.0-54.0); HEMOGLOBIN 11.2 g/dL (13.5-17.5); IMMATURE GRANULOCYTES 1.3 % (0-5); LYMPHOCYTES 18.6 % (15-50); MCH 32.3 pg (26.0-34.0); MCHC 33.3 g/dL (31.0-37.0); MCV 96.8 fL (80.0-100.0); MONOCYTES 6.7 % (2-11); NEUTROPHILS 71.4 % (40-80); RBC 3.47 10x6/uL (4.20-6.10); RDW 14.1 % (11.5-14.5); WBC 14.3 10x3/uL (4.8-10.8)
[2018-01-29 18:11] LABS: PLATELET COUNT 487 10x3/uL (130-400)
[2018-01-29 18:16] LABS: PROTIME 12.8 SECONDS (11.6-15.0)
[2018-01-29 18:18] LABS: D-DIMER-QUANTITATIVE 1.51 ug/mLFEU (0.20-0.54)
[2018-01-29 18:27] LABS: ALBUMIN 3.3 g/dL (3.4-5.0); ALKALINE PHOSPHATASE 83 U/L (46-116); ALT (SGPT) 29 U/L (10-68); BILIRUBIN - TOTAL 0.19 mg/dL (0.2-1.3); CALC OSMOLALITY 272 mosm/kg (275-300); CALCIUM 9.1 mg/dL (8.5-10.1); CARBON DIOXIDE 29.2 mmol/L (21.0-32.0); CHLORIDE - SERUM 100 mmol/L (98-107); CREATININE - SERUM 1.7 mg/dL (0.6-1.3); GLUCOSE 106 mg/dL (74-106); POTASSIUM - SERUM 4.6 mmol/L (3.5-5.1); PROTEIN - SERUM 6.9 g/dL (6.4-8.2); SODIUM 136 mmol/L (136-145); UREA NITROGEN 15 mg/dL (7-18); eGFR NON AFRICAN AMERICAN 44 mL/min (90-120)
[2018-01-29 18:40] LABS: C-REACTIVE PROTEIN 1.4 mg/dL (0.0-0.9); CKMB 1.4 U/L (0.0-3.6); CREATINE KINASE 47 UL (21-232); PRO BNP 128 pg/mL (0-125); THYROID STIMULATING HORMONE 2.02 uIU/mL (0.36-3.74); TROPONIN-I < 0.017 ng/mL (0.000-0.060)
[2018-01-29 19:16] VITALS: BP 154/71
[2018-01-29 20:43] VITALS: BP 162/80
[2018-01-29 20:57] LABS: APPEARANCE CLEAR (CLEAR); BILIRUBIN NEGATIVE (NEGATIVE); COLOR YELLOW (YELLOW); GLUCOSE NEGATIVE (NEGATIVE); KETONE NEGATIVE (NEGATIVE); NITRITE NEGATIVE (NEGATIVE); PROTEIN NEGATIVE (NEGATIVE); SPECIFIC GRAVITY 1.015 (1.005-1.020); UROBILINOGEN NORMAL (NORMAL)
[2018-01-29] MEDS ORDERED: LYRICA300 MG PO (22:59)
[2018-01-29] MEDS ORDERED: NORVASC5 MG PO (23:02)
[2018-01-30] VITALS (8 sets, daily range): BP systolic 133–168; BP diastolic 70–95; Ht 182.9 cm; Wt 146.8 kg
[2018-01-30] MEDS ORDERED: LISINOPRIL10 MG PO (00:09)
[2018-01-30] MEDS ORDERED: BREO ELLIPTA 21 EACH (00:10)
[2018-01-30] MEDS ORDERED: EPITOL200 MG PO (00:12)
[2018-01-30] MEDS ORDERED: PROMACTA25 MG PO (00:15)
[2018-01-30 00:55] LABS: CKMB 1.5 U/L (0.0-3.6); CREATINE KINASE 48 UL (21-232); TROPONIN-I < 0.017 ng/mL (0.000-0.060)
[2018-01-30 06:57] LABS: CALC OSMOLALITY 273 mosm/kg (275-300); CALCIUM 8.6 mg/dL (8.5-10.1); CARBON DIOXIDE 28.4 mmol/L (21.0-32.0); CHLORIDE - SERUM 103 mmol/L (98-107); CKMB 1.4 U/L (0.0-3.6); CREATINE KINASE 49 UL (21-232); GLUCOSE 104 mg/dL (74-106); POTASSIUM - SERUM 4.4 mmol/L (3.5-5.1); SODIUM 137 mmol/L (136-145); TROPONIN-I < 0.017 ng/mL (0.000-0.060); UREA NITROGEN 12 mg/dL (7-18); eGFR NON AFRICAN AMERICAN 81 mL/min (90-120)
[2018-01-30 07:22] LABS: BASOPHILS 0.5 % (0-2); EOSINOPHILS 2.4 % (0-7); HEMATOCRIT 32.2 % (42.0-54.0); HEMOGLOBIN 10.8 g/dL (13.5-17.5); IMMATURE GRANULOCYTES 1.4 % (0-5); LYMPHOCYTES 22.4 % (15-50); MCH 32.4 pg (26.0-34.0); MCHC 33.5 g/dL (31.0-37.0); MCV 96.7 fL (80.0-100.0); MONOCYTES 6.3 % (2-11); PLATELET COUNT 494 10x3/uL (130-400); RBC 3.33 10x6/uL (4.20-6.10); RDW 14.2 % (11.5-14.5)
[2018-01-30] MEDS ORDERED: OXYCODONE-APAP1 TAB PO (11:00)
== END 2018-01-30 13:34 | disposition home or self-care (01) ==
LOC: D.ER 17:38 → D.M2 21:59 → OBSVTIME 21:59 → D.M2 01-30 13:34
PROVIDERS: Family Medicine
DX: I95.9 Hypotension, unspecified (principal); E86.0 Dehydration; D64.9 Anemia, unspecified; F32.9 Major depressive disorder, single episode, unspecified; F41.9 Anxiety disorder, unspecified; G62.9 Polyneuropathy, unspecified; I10 Essential (primary) hypertension

== ENCOUNTER → 2018-05-25 09:29 | Outpatient (CLI) | payer MEDICARE ==
[2018-01-30 00:25] VITALS: BMI 43.9
[~2018-05-25 09:29] MED LIST changes: +BREO ELLIPTA 21 EACH; +EPITOL200 MG PO; +LISINOPRIL10 MG PO; +LYRICA300 MG PO; +NORVASC5 MG PO; +OXYCODONE-APAP1 TAB PO; +PROMACTA25 MG PO
== END | disposition home or self-care (01) ==
LOC: D.MRI 09:29
DX: M25.552 Pain in left hip (principal)

== ENCOUNTER → 2018-05-29 17:21 | Outpatient (CLI) | payer MEDICARE ==
[2018-01-30 00:25] VITALS: BMI 43.9
[~2018-05-29 17:21] MED LIST changes: +BACTROBAN NASAL1 GM NASAL; +CENTRUM MEN'S1 EACH PO; +CLARITIN 10 MG10 MG PO; +FLOMAX0.4 MG PO; +FUROSEMIDE20 MG PO; +HYDROCODON-ACE1 EA10 PO; +PROSCAR5 MG PO; +ROXICODONE15 MG PO
== END | disposition home or self-care (01) ==
LOC: D.LABREF 17:21
DX: M16.12 Unilateral primary osteoarthritis, left hip (principal); Z11.8 Encounter for screening for other infectious and parasitic diseases

== ENCOUNTER 2018-06-12 07:56 | Inpatient (IN) | payer MEDICARE, OTHER ==
[~2018-06-12] VITALS: Ht 180.3 cm; Wt 149.7 kg
[~2018-06-12 07:56] MED LIST changes: -BACTROBAN NASAL1 GM NASAL; -CENTRUM MEN'S1 EACH PO; -CLARITIN 10 MG10 MG PO; -FLOMAX0.4 MG PO; -FUROSEMIDE20 MG PO; -HYDROCODON-ACE1 EA10 PO; -PROSCAR5 MG PO; -ROXICODONE15 MG PO
[2018-06-20] MEDS ORDERED: ROXICODONE15 MG PO (10:55)
[2018-06-20] MEDS ORDERED: EPITOL200 MG PO (10:56)
[2018-06-20] MEDS ORDERED: CARDURA8 MG PO (10:57)
[2018-06-20] MEDS ORDERED: PHENERGAN25 M1 PO (10:58)
[2018-06-20] MEDS ORDERED: CENTRUM MEN'S1 EACH PO (10:58)
[2018-06-20] MEDS ORDERED: FUROSEMIDE20 MG PO (10:58)
[2018-06-20] MEDS ORDERED: BACTROBAN NASAL1 GM NASAL (10:59)
[2018-06-20] MEDS ORDERED: CLARITIN 10 MG10 MG PO (10:59)
[2018-06-20 12:24] LABS: ANION GAP 12.6 mmol/L (8-16); CALCIUM 8.4 mg/dL (8.5-10.1); CARBON DIOXIDE 29.3 mmol/L (21.0-32.0); CREATININE - SERUM 1.1 mg/dL (0.6-1.3); POTASSIUM - SERUM 4.9 mmol/L (3.5-5.1)
[2018-06-20 12:26] LABS: BASOPHILS 0.3 % (0-2); EOSINOPHILS 1.6 % (0-7); HEMATOCRIT 39.2 % (42.0-54.0); HEMOGLOBIN 13.6 g/dL (13.5-17.5); IMMATURE GRANULOCYTES 0.4 % (0-5); LYMPHOCYTES 22.5 % (15-50); MCH 31.8 pg (26.0-34.0); MCHC 34.7 g/dL (31.0-37.0); MCV 91.6 fL (80.0-100.0); MEAN PLATELET VOLUME 9.4 fL (7.4-10.4); MONOCYTES 8.8 % (2-11); NEUTROPHILS 66.4 % (40-80); RBC 4.28 10x6/uL (4.20-6.10); RDW 13.9 % (11.5-14.5); WBC 7.9 10x3/uL (4.8-10.8)
[2018-06-20 12:29] LABS: PLATELET COUNT 196 10x3/uL (130-400)
[2018-06-20 12:37] LABS: APTT 27.7 SECONDS (22.8-39.4); INR 0.96 (0.85-1.17); PROTIME 12.3 SECONDS (11.6-15.0)
[2018-06-20 13:00] LABS: APPEARANCE HAZY (CLEAR); COLOR DK YELLOW (YELLOW); SPECIFIC GRAVITY 1.015 (1.005-1.020)
[2018-06-20 13:01] LABS: BACTERIA MODERATE /hpf (NONE SEEN); BILIRUBIN NEGATIVE (NEGATIVE); EPITHELIAL CELLS 0-5 /hpf (0-5); GLUCOSE NEGATIVE (NEGATIVE); HYALINE CAST 0-5 /lpf (NONE SEEN); KETONE NEGATIVE (NEGATIVE); MUCUS >1+ /lpf (NONE SEEN); NITRITE NEGATIVE (NEGATIVE); PROTEIN NEGATIVE (NEGATIVE); UROBILINOGEN NORMAL (NORMAL); WAXY CAST RARE /lpf (NONE SEEN); WHITE CELLS - URINE 0-5 /hpf (0-5)
[2018-06-25 11:06] VITALS: BMI 46.1
--- NOTE | 2018-06-25 14:13 | NUR ---
PLASMA BLADE SET 6/8 BOVIE PAD LEFT FLANK [id number] EXP 12/02/2019
[2018-06-25 16:23] VITALS: BP 150/79
--- NOTE | 2018-06-25 16:40 | NUR ---
PATIENT IN BED WITH IV INTACT. RECIEVED PAIN PILL AT THIS TIME. DRESSING TO LEFT HIP CDI. NO COMPLAINTS. CALL LIGHT WITHIN REACH.
--- NOTE | 2018-06-25 17:11 | NUR ---
SCDS PLACED ON PATIENT AND WORKING.
[2018-06-25 17:15] VITALS: Ht 180.3 cm; Wt 149.7 kg
--- NOTE | 2018-06-25 18:45 | NUR ---
PATIENT IN BED WITH IV INTACT. NO COMPLAINTS OR SIGNS OF DISTRESS. FAMILY AT BEDSIDE. CALL LIGHT WITHIN REACH.
[2018-06-25 20:31] VITALS: BP 145/77
--- NOTE | 2018-06-25 21:12 | NUR ---
REC'D. STATES UNABLE TO VOID ONLY VOIDED A TRICKLE POST OP.BLADDER SCANNER UNAVAILABLE. #16 INDWELLING GREGG INSERTED WITHOUT DIFFICULTY. IMMEDIATE RETURN OF 1000CC LITE YELLOW URINE.STATES FEELS BETTER. NOW. GREGG CLAMPED.DRSG. DRY AND INTACT LEFT HIP ICE INTACT. FOOT PINK AND WARM,PEDAL PULSE PRESENT. WIGGLES TOES AND DORSIFLEXES WITHOUT DIFFICULTY WILL CONTINUE TO MONITOR FOR ANY CHGES. IN NEUROVASCULAR STATUS AND FOLLOW CURRENT PLAN OF CARE
[2018-06-26 04:54] VITALS: BP 162/66
[2018-06-26 07:14] LABS: HEMATOCRIT 29.7 % (42.0-54.0); HEMOGLOBIN 10.1 g/dL (13.5-17.5); MEAN PLATELET VOLUME 9.2 fL (7.4-10.4); RBC 3.16 10x6/uL (4.20-6.10); RDW 13.6 % (11.5-14.5); WBC 8.4 10x3/uL (4.8-10.8)
[2018-06-26 08:45] VITALS: BP 133/72
[2018-06-26 13:00] VITALS: BP 92/46
--- NOTE | 2018-06-26 14:16 | NUR ---
GOLF COURSE LABORER NOTES - LEFT TOTAL HIP YESTERDAY, PAIN OF 7/10, MEDICATED PER ORDERS, WILL MONITOR. IV TO RIGHT HAND, PATENT, DRESSING CLEAN DRY AND INTACT. BED LOW, CALL LIGHT IN REACH. NO OTHER NEEDS
[2018-06-26 16:45] VITALS: BP 101/54
--- NOTE | 2018-06-26 18:29 | NUR ---
PT RESTING EYES CLOSED NO SIGNS OF DISTRESS NOTED, FAMILY AT BEDSIDE CL IN REACH
[2018-06-26 21:57] VITALS: BP 89/39
[2018-06-27 05:08] VITALS: BP 143/17
[2018-06-27 07:23] LABS: HEMATOCRIT 31.1 % (42.0-54.0); HEMOGLOBIN 10.5 g/dL (13.5-17.5); MCH 31.3 pg (26.0-34.0); MCHC 33.8 g/dL (31.0-37.0); MCV 92.8 fL (80.0-100.0); MEAN PLATELET VOLUME 9.4 fL (7.4-10.4); RBC 3.35 10x6/uL (4.20-6.10); WBC 10.5 10x3/uL (4.8-10.8)
--- NOTE | 2018-06-27 07:51 | NUR ---
PATIENT IN BED WITH EYES CLOSED RESTING QUIETLY. NO COMPLAINTS OR SIGNS OF DISTRESS. CALL LIGHT WITHIN REACH.
--- NOTE | 2018-06-27 07:57 | NUR ---
PATIENT RESTING QUIETLY, SPOUSE AT BEDSIDE. RESP EVEN AND UNLABORED, NO DISTRESS NOTED.
--- NOTE | 2018-06-27 08:05 | NUR ---
AT 209906/26/18 BP 98/50 REQUESTING PAIN MED TOLD ADDITIONAL SEDATIVE WILL LOWER BP MORE POSSIBLE CAUSE SERIOUS SIDE EFFECTS FROM BEING OVER MEDICATED
[2018-06-27 08:38] VITALS: BP 143/77
--- NOTE | 2018-06-27 10:17 | OP ---
PATIENT NAME: KRISHNA NICK MEDICAL RECORD: [id number] :57 LOCATION:D.[id number] ADMISSION DATE:06/25/18 SURGEON: CHARANJIT CORONADO MD DATE OF OPERATION: 06/25/2018 PREOPERATIVE DIAGNOSIS: Degenerative arthritis of the left hip. POSTOPERATIVE DIAGNOSIS: Degenerative arthritis of the left hip. PROCEDURE: Left total hip arthroplasty. SURGEON: Charanjit Coronado MD ANESTHESIA: General. CERTIFIED RESIDENTIAL MEDICATION AIDE: CHRISTOPHER Brown INTRAOPERATIVE COMPLICATIONS: None. SUMMARY OF PATHOLOGIC FINDINGS: The patient had severe degenerative arthritis of the left hip consistent with the preoperative diagnosis. IMPLANTS USED: Trident II Tritanium cluster hole shell size 54 alpha code E, 36 mm 0-degree polyethylene insert alpha Code E, ceramic V40 femoral head -2.5-36, and a size 5 Accolade II stem. ESTIMATED BLOOD LOSS: 300 cc. OPERATIVE SUMMARY IN DETAIL: After obtaining the appropriate preoperative orthopedic surgery consent as well as anesthetic consultation, evaluation and clearance, the patient was brought to the operative suite, placed on the operating table in supine position. After adequate general laryngeal mask airway was administered, the patient was placed in a left lateral decubitus position. All pressure points were well padded to include down leg peroneal pad as well as axillary roll. The patient was held firmly to the operating table using the vacuum pack suction system. Left lower extremity and hip were then prepped and draped in routine sterile fashion. Curvilinear incision was made over the greater trochanter in this morbidly obese gentleman who was taken down to the level of the IT band, which was split in line with fibers of the IT band to reveal gluteus medius and minimus. These were reflected anteriorly. The hip capsule was cut in a T-type fashion. Hip was dislocated. Femoral neck cut was made using the Accolade femoral neck cutting guide. Having completed this, attention was turned to the acetabulum. After circumferential labrectomy, serial and sequential reaming was done to ____ keeping with the Trident II technology. Trident II was then put into place with excellent fit and fill. A 36-mm 0-degree polyethylene liner was inserted with a Bette. Attention then turned to the proximal femur. Serial and sequential reaming and broaching were done for a size 5 Accolade II stem. Size 5 II Accolade stem was put into place. Trials were undertaken. It was felt that the -5 was most the appropriate for tension ____ instability. -2.5 was tamped into the Mckeon taper, reduced, taken through range of motion and found to be stable on all planes. The gluteus medius minimus were then reapproximated back to the greater trochanter in a transosseous fashion using #5 Ethibond. This was then followed by #5 closure of the IT band as well as skin with #1 Vicryl, 2-0 Vicryl and skin sahra done by CHRISTOPHER Brown. Sterile dressings were applied. Intraoperative radiographs OPERATIVE REPORT [id number] KRISHNA NICK were taken and showed good position and placement of all components. The patient was awakened and taken to recovery room in stable condition. All final needle and sponge counts were correct. TRANSINT:[id number] Voice Confirmation ID: [id number] DOCUMENT ID: [id number] CLIFF CONNELL, CHARANJIT REARDON at 1017 CC: [id number] DICTATION DATE: 06/25/18 1452 PLANT ATTENDANT OR ASSISTANT OPERATOR: 06/25/18 1807 ADM IN [facility] [address] [place] [address]
[2018-06-27 13:04] VITALS: BP 118/54
--- NOTE | 2018-06-27 14:49 | MORECARE ---
CASE MANAGEMENT DISCHARGE SUMMARY PATIENT: KRISHNA MOODY UNIT: [id number] ADM DATE: 06/25/18 AGE: 62 : 57 SEX: M ROOM/BED: D.2228 AUTHOR: HOSEA FREITAS PHYSICIAN: REFERRING PHYSICIAN: CHARANJIT CORONADO MD DATE OF SERVICE: 06/27/18 Discharge Plan Patient Name: KRISHNA MOODY [facility] : 1955 Planned Disposition: Home Anticipated Discharge Date: 06/29/18 Discharge Date: Expected LOS: 4 Initial Reviewer: [email or web address] Initial Review Date: 06/27/2018 Generated: 06/27/18 3:49 pm DCPIA - Discharge Planning Initial Assessment Updated by [email or web address]: Moira Floyd on 06/27/18 2:43 pm * Is the patient Alert and Oriented? Yes * How many steps to enter\exit or inside your home? 2/0 * PCP Dr. Vania Miranda * Pharmacy [facility] * Preadmission Environment Home with Family * ADLs Independent * Equipment Cane Rolling Walker Shower Chair * List name and contact numbers for known caregivers / representatives who currently or will assist patient after discharge: Michelle Moody - [facility] - [phone] * Verbal permission to speak to the caregivers and representatives has been obtained from the patient. Yes * Community resources currently utilized None * Additional services required to return to the preadmission environment? Yes * Can the patient safely return to the preadmission environment? Yes * Has this patient been hospitalized within the prior 30 days at any hospital? No External Providers External Provider: [facility] Next Contact Date: Service Request Date: Service Type: Resolution: Reviewer: Comments: Patient Name: KRISHNA MOODY Page [phone] at 1449 All edits/amendments must be made on the electronic document DICTATION DATE: 06/27/181447 SPINNERET PERSON: YOSHI 06/27/181447 RPT#: [id number] DC DATE: STATUS: ADM IN [facility] [address] [place] [address] END OF REPORT
--- NOTE | 2018-06-27 14:58 | MORECARE ---
CASE MANAGEMENT DISCHARGE SUMMARY PATIENT: KRISHNA MOODY UNIT: [id number] ADM DATE: 06/25/18 AGE: 62 : 57 SEX: M ROOM/BED: D.2228 AUTHOR: FORTINO,DOC PHYSICIAN: REFERRING PHYSICIAN: CHARANJIT CORONADO MD DATE OF SERVICE: 06/27/18 Discharge Plan Patient Name: KRISHNA MOODY Facility: [facility]:[place] : 1955 Planned Disposition: Home Anticipated Discharge Date: 06/29/18 Discharge Date: Expected LOS: 4 Initial Reviewer: [email or web address] Initial Review Date: 06/27/2018 Generated: 06/27/18 3:58 pm Comments DCP- Discharge Planning Updated by [email or web address]: Moira Floyd on 06/27/18 1:[address] Patient Name: KRISHNA MOODY Admission Status: Elective Accout number: [id number] Admission Date: 06-25-2018 : 1955 Admission Diagnosis: Attending: CHARANJIT CORONADO Current LOS: 2 Anticipated DC Date: 06-29-2018 Planned Disposition: Home Primary Insurance: [facility] [employer]IC[facility] SOLUTIONS Discharge Planning Comments: CM met with patient and his to discuss discharge planning/needs. He lives with his and plans on returning home with her and feels this is a safe discharge. States he is independent with all ADL's and AIDL's. States he would like to use [facility] for outpatient therapy. I called and spoke to them and his first appointment is Monday at 0745. I gave the appointment time and date to patient's . States he has all the DME needed at home. CM will continue to follow and assist with discharge planning/needs. [facility]: P - [phone] Fax - [phone] Fishing Boat Mate: Moira Floyd DCPIA - Discharge Planning Initial Assessment Updated by [email or web address]: Moira Floyd on 06/27/18 2:43 pm * Is the patient Alert and Oriented? Yes * How many steps to enter\exit or inside your home? 2/0 * PCP Dr. Vania Miranda * [facility] [address] * Preadmission Environment Home with Family * ADLs Independent * Equipment Cane Rolling Walker Shower Chair * List name and contact numbers for known caregivers / representatives who currently or will assist patient after discharge: Michelle Moody - - [phone] * Verbal permission to speak to the caregivers and representatives has been obtained from the patient. Yes * Community resources currently utilized None * Additional services required to return to the preadmission environment? Yes * Can the patient safely return to the preadmission environment? Yes * Has this patient been hospitalized within the prior 30 days at any hospital? No Last DP export: 06/27/18 1:49 p Patient Name: KRISHNA MOODY Page 37430 at 1458 All edits/amendments must be made on the electronic document DICTATION DATE: 06/27/181457 SINGLE STAYER OPERATOR: YOSHI 06/27/181457 RPT#: [id number] DC DATE: STATUS: ADM IN [facility] [address] [place] [address] END OF REPORT
--- NOTE | 2018-06-27 16:19 | NUR ---
BERT, ORACLE CONSULTANT, SPOKE TO DR. BIRCH. HE IS AWARE OF CONSULT. WILL SEE PATIENT SOON ABLE.
[2018-06-27 16:57] VITALS: BP 113/55
[2018-06-27 18:43] LABS: APPEARANCE CLEAR (CLEAR); BILIRUBIN NEGATIVE (NEGATIVE); COLOR YELLOW (YELLOW); GLUCOSE NEGATIVE (NEGATIVE); KETONE NEGATIVE (NEGATIVE); NITRITE NEGATIVE (NEGATIVE); PROTEIN NEGATIVE (NEGATIVE); SPECIFIC GRAVITY 1.015 (1.005-1.020); UROBILINOGEN NORMAL (NORMAL)
[2018-06-27 18:44] LABS: BACTERIA FEW /hpf (NONE SEEN); RED CELLS - URINE 0-5 /hpf (0-5); WHITE CELLS - URINE OCC /hpf (0-5)
[2018-06-27 20:00] VITALS: BP 113/55; BP 127/68
--- NOTE | 2018-06-27 21:21 | NUR ---
RESTNG QUIETLY RESPIRATIONS WITH EASE AND UNLABORED. NO DISTRESS.SR UP X2 CALL LIGHT WITHIN REACH.
[2018-06-28] VITALS (11 sets, daily range): BP systolic 85–155; BP diastolic 46–79
--- NOTE | 2018-06-28 01:32 | NUR ---
2015) rec'd in bed eyes closed resp. deep and even.numerous visitors at bedside.somewhat sedated opens eyes when name called and instantly goes back to sleep.bp 110/68.drsg dry and intact left hip. foot pink and warm pedal pulse.works foot when touching bottom of foot.1+ edema lower ext and foot. at bedside.francisco patent and draining straw yellow colored urine
--- NOTE | 2018-06-28 04:40 | NUR ---
0130) AWAKE BP 155/77 RATING PAIN 9 1/2 LEFT HIP PAIN.OXY IR 15MG GIVEN PO PER REQUEST
--- NOTE | 2018-06-28 04:42 | NUR ---
EYES CLOSED RESP. DEEP AND EVEN AT BEDSIDE
--- NOTE | 2018-06-28 07:34 | NUR ---
PT IS RESTING IN BED WITH EYES CLOSED. RESPIRATIONS ARE EVEN AND UNLABORED. PT IS EASILY AROUSED WITH VERBAL STIMULATION. FAMILY MEMBER IS AT BEDSIDE. PT DENIES OF NAUSEA AND VOMITING AT THIS TIME, BUT REQUESTS ANTIEMETIC PRIOR TO AMBULATION WITH PT. WILL ADDRESS. SEE EMAR. PT REPORTS PAIN 5/10 AND DENIES NEEDS AT THIS TIME. BED IS IN THE LOWEST POSITION. CALL LIGHT AND BEDSIDE TABLE ARE WITHIN REACH. PT AND PT FAMILY MEMBER DENY FURTHER NEEDS.
--- NOTE | 2018-06-28 09:50 | NUR ---
PT IS SITTING IN BEDSIDE CHAIR. FAMILY IS AT BEDSIDE. PT DENIES FURTHER NEEDS AT THIS TIME.
--- NOTE | 2018-06-28 10:48 | NUR ---
SPOKE WITH JENELLE ROSE REGARDING PT HYPOTENSION. SEE FLOWSHEET. NS RUNNING AT 100/HR. WILL CONT TO MONITOR PT.
--- NOTE | 2018-06-28 13:25 | NUR ---
MULTIPLE ATTEMPTS MADE TO RESITE IV. ACCESS NOT AVAILABLE. VASCULAR ACCESS NURSE NOTIFIED OF NEED FOR ACCESS FOR IV ABX.
--- NOTE | 2018-06-28 13:37 | NUR ---
SANGUINEOUS DRAINAGE NOTED TO PT GOWN AND SHEET IN CHAIR. DRESSING REINFORCED WITH ABD PADDING. PT DENIES DISCOMFORT. PT ASSISTED BACK TO BED BY PT. FAMILY MEMBER IS AT BEDSIDE. PT AND PT FAMILY DENIES FURTHER NEEDS AT THIS TIME. BED IS IN THE LOWEST POSITION. CALL LIGHT AND BEDSIDE TABLE ARE WITHIN REACH. WILL CONT TO MONITOR.
--- NOTE | 2018-06-28 14:08 | NUR ---
PT IS RESTING IN BED AND IS PALE IN COLOR. PT RECENTLY AMBULATED WITH PT AND IS NOW BACK IN THE BED. PT REPORTS THAT THE PT HAS BEEN DIAGNOSED WITH ORTHOSTATIC HYPOTENSION AND REQUESTS GATORADE. DIETARY NOTIFIED AND WILL BRING ORANGE GATORADE TO PT ROOM. BED IS IN THE LOWEST POSITION. CALL LIGHT AND BEDSIDE TABLE ARE WITHIN REACH. PT DENIES FURTHER NEEDS AT THIS TIME. WILL CONT TO MONITOR.
--- NOTE | 2018-06-28 20:00 | NUR ---
EYES CLOSED RESP UNLABOREDO2 SAT AT 96% RA, DIFFICULT TO AROUSE STATES HE HAS BEEN THAT WAY JUST SLEEPING SO HARD ITS BEEN HARD TO WAKE HIM UP. PT WILL AROUSE BUT MUMBLES AND RETURNS TO SLEEP VITALS WNL, WILL MONITOR
--- NOTE | 2018-06-28 21:00 | NUR ---
REMAINS DIFFICULT TO AROUSE PM MEDS HELD EXCEPT FOR ELIQUIS AND COLACE AROUSED ENOUGH TO SWOLLOW THESE BUT IMEDIATELY RETURNED TO SLEEP, REMAINING AT BEDSIDE
--- NOTE | 2018-06-28 22:30 | NUR ---
AWAKE AND ALERT C/O PAIN 8 OUT OF 10 TO LEFT HIP, REQUESTING PAIN MEDS, OXYCODONE GIVEN ORDERED
--- NOTE | 2018-06-29 02:36 | NUR ---
UP TO BATHROOM WITH WALKER REPORTS LARGE BM BACK TO BED TOLERATED WELL. REMAINING ALERT NO C/O OR REQUEST AT BEDSIDE, CALL LIGHT IN REACH
[2018-06-29 04:00] VITALS: BP 140/82
[2018-06-29 08:31] VITALS: BP 148/72
[2018-06-29] MEDS ORDERED: FLOMAX0.4 MG PO (08:56)
[2018-06-29] MEDS ORDERED: ELIQUIS2.5 MG PO (08:56)
[2018-06-29] MEDS ORDERED: PROSCAR5 MG PO (08:57)
[2018-06-29] MEDS ORDERED: HYDROCODON-ACE1 EA10 PO (08:57)
--- NOTE | 2018-06-29 09:39 | MORECARE ---
CASE MANAGEMENT DISCHARGE SUMMARY PATIENT: KRISHNA MOODY UNIT: [id number] ADM DATE: 06/25/18 AGE: 62 : 57 SEX: M ROOM/BED: D.2228 AUTHOR: FORTINO,DOC PHYSICIAN: REFERRING PHYSICIAN: CHARANJIT CORONADO MD DATE OF SERVICE: 06/29/18 Discharge Plan Patient Name: KRISHNA MOODY Facility: [facility]:[place] : 1955 Planned Disposition: Home Anticipated Discharge Date: 06/29/18 Discharge Date: Expected LOS: 4 Initial Reviewer: [email or web address] Initial Review Date: 06/27/2018 Generated: 06/29/18 10:39 am Comments DCP- Discharge Planning Updated by [email or web address]: Moira Floyd on 06/27/18 1:[address] Patient Name: KRISHNA MOODY Admission Status: Elective Accout number: [id number] Admission Date: 06-25-2018 : 1955 Admission Diagnosis: Attending: CHARANJIT CORONADO Current LOS: 2 Anticipated DC Date: 06-29-2018 Planned Disposition: Home Primary Insurance: [facility] MEDICARE SOLUTIONS Discharge Planning Comments: CM met with patient and his to discuss discharge planning/needs. He lives with his and plans on returning home with her and feels this is a safe discharge. States he is independent with all ADL's and AIDL's. States he would like to use [facility] for outpatient therapy. I called and spoke to them and his first appointment is Monday at 0745. I gave the appointment time and date to patient's . States he has all the DME needed at home. CM will continue to follow and assist with discharge planning/needs. [facility]: P - [phone] Fax - [phone] Seedling Puller: Moira Floyd DCPIA - Discharge Planning Initial Assessment Updated by [email or web address]: Moira Floyd on 06/27/18 2:43 pm * Is the patient Alert and Oriented? Yes * How many steps to enter\exit or inside your home? 2/0 * PCP Dr. Vania Miranda * [facility] [address] * Preadmission Environment Home with Family * ADLs Independent * Equipment Cane Rolling Walker Shower Chair * List name and contact numbers for known caregivers / representatives who currently or will assist patient after discharge: Michelle Moody - - [phone] * Verbal permission to speak to the caregivers and representatives has been obtained from the patient. Yes * Community resources currently utilized None * Additional services required to return to the preadmission environment? Yes * Can the patient safely return to the preadmission environment? Yes * Has this patient been hospitalized within the prior 30 days at any hospital? No External Providers [facility] Next Contact Date: Service Request Date: Service Type: Resolution: Reviewer: Comments: Coverage Notice Reviewer: [id number] Trung Floyd Notice Issued Date-Time: 06/29/2018 9:38 Notice Type: IM Discharge Notice Notice Delivered To: Patient Relationship to Patient: Self Pinion And Wheel Truer Name: Delivery Method: HAND - Hand Delivered Kim Days: Prior Verbal Notification: Recipient Understood Notice: Yes Recipient Signature: Yes Med Rec Note Co-signed by Attending: Coverage Notice Comment: IMM EXPLAINED, SIGNED, GIVEN, ORIGINAL PLACED IN MR Last DP export: 06/27/18 1:58 p Patient Name: KRISHNA MOODY Page 17397 at 0939 All edits/amendments must be made on the electronic document DICTATION DATE: 06/29/18938 SLEEVE TAILOR: YOSHI 06/29/18938 RPT#: [id number] DC DATE: STATUS: ADM IN [facility] [address] [place] [address] END OF REPORT
--- NOTE | 2018-06-29 09:46 | MORECARE ---
CASE MANAGEMENT DISCHARGE SUMMARY PATIENT: KRISHNA MOODY UNIT: [id number] ADM DATE: 06/25/18 AGE: 62 : 57 SEX: M ROOM/BED: D.2228 AUTHOR: FORTINO,DOC PHYSICIAN: REFERRING PHYSICIAN: CHARANJIT CORONADO MD DATE OF SERVICE: 06/29/18 Discharge Plan Patient Name: KRISHNA MOODY Facility: [facility]:[place] : 1955 Planned Disposition: Home Anticipated Discharge Date: 06/29/18 Discharge Date: Expected LOS: 4 Initial Reviewer: [email or web address] Initial Review Date: 06/27/2018 Generated: 06/29/18 10:46 am Comments DCP- Discharge Planning Updated by [email or web address]: Moira Floyd on 06/29/18 8:[address] Received orders for discharge. I called [facility] and cancelled Monday's appointment. I spoke with [facility] and they will see him for nursing and PT on Monday. Patient is in agreement to this. He denies need for DME. Home today with home health. CM will continue to follow and assist with discharge planning/needs. DCP- Discharge Planning Updated by [email or web address]: Moira Floyd on 06/27/18 1:[address] Patient Name: KRISHNA MOODY Admission Status: Elective Accout number: [id number] Admission Date: 06-25-2018 : 1955 Admission Diagnosis: Attending: CHARANJIT CORONADO Current LOS: 2 Anticipated DC Date: 06-29-2018 Planned Disposition: Home Primary Insurance: [facility] MEDICARE SOLUTIONS Discharge Planning Comments: CM met with patient and his to discuss discharge planning/needs. He lives with his and plans on returning home with her and feels this is a safe discharge. States he is independent with all ADL's and AIDL's. States he would like to use [facility] for outpatient therapy. I called and spoke to them and his first appointment is Monday at 0745. I gave the appointment time and date to patient's . States he has all the DME needed at home. CM will continue to follow and assist with discharge planning/needs. [facility]: P - [phone] Fax - [phone] Maintenance Custodian: Moira Floyd DCPIA - Discharge Planning Initial Assessment Updated by [email or web address]: Moira Floyd on 06/27/18 2:43 pm * Is the patient Alert and Oriented? Yes * How many steps to enter\exit or inside your home? 2/0 * PCP Dr. Vania Miranda * Pharmacy [facility] [address] * Preadmission Environment Home with Family * ADLs Independent * Equipment Cane Rolling Walker Shower Chair * List name and contact numbers for known caregivers / representatives who currently or will assist patient after discharge: Michelle Moody - - [phone] * Verbal permission to speak to the caregivers and representatives has been obtained from the patient. Yes * Community resources currently utilized None * Additional services required to return to the preadmission environment? Yes * Can the patient safely return to the preadmission environment? Yes * Has this patient been hospitalized within the prior 30 days at any hospital? No Coverage Notice Reviewer: [id number] - Moira Folyd Notice Issued Date-Time: 06/29/2018 9:38 Notice Type: IM Discharge Notice Notice Delivered To: Patient Relationship to Patient: Self Loss Prevention Auditor Name: Delivery Method: HAND - Hand Delivered Kim Days: Prior Verbal Notification: Recipient Understood Notice: Yes Recipient Signature: Yes Med Rec Note Co-signed by Attending: Coverage Notice Comment: IMM EXPLAINED, SIGNED, GIVEN, ORIGINAL PLACED IN MR Last DP export: 06/29/18 8:39 am Patient Name: KRISHNA MOODY Page [id number] at 0946 All edits/amendments must be made on the electronic document DICTATION DATE: 06/29/18945 ANIMAL CRUELTY INVESTIGATION SUPERVISOR: YOSHI 06/29/18945 RPT#: [id number] DC DATE: STATUS: ADM IN [facility] [address] [place] [address] END OF REPORT
--- NOTE | 2018-06-29 11:10 | NUR ---
Prevena incision mgmt system applied to surgical incision on left hip. Incision is 24cm in length. [place] are intact. Moderate amount of serosanguinous drainage is noted without odor. Dressing applied, negative pressure achieved. Reviewed with pt alarms on pump, phone number for [employer] and troubleshooting section of information booklet. Pt voiced his understanding.
--- NOTE | 2018-06-29 12:00 | NUR ---
DEMONSTRATED FOR PATIENT AND SPOUSE HOW TO CHANGE GREGG BAG. VERALIZED UNDERSTANDING OF HOW TO CHANGE AND USE AT HOME. PLACED LEG BAG FOR DISCHARGING HOME. DISCUSSED DISCHARGE, MEDICATION AND FOLLOW-UP INSTRUCTIONS WITH PATIENT AND SPOUSE. IV REMOVED, TIP INTACT. ASKED THEM TO LET ME KNOW WHEN DRESSED AND BELONGINGS ARE GATHERED TO GET WHEELCHAIR.
[2018-06-29 12:09] VITALS: BP 139/98
--- NOTE | 2018-06-29 13:30 | NUR ---
PATIENT DISCHARGED HOME VIA WHEELCHAIR BY STUDENT NURSE. ALL BELONGINGS SENT WITH PATIENT.
--- NOTE | 2018-06-29 16:07 | MORECARE ---
CASE MANAGEMENT DISCHARGE SUMMARY PATIENT: KRISHNA MOODY UNIT: [id number] ADM DATE: 06/25/18 AGE: 62 : 57 SEX: M ROOM/BED: D.2228 AUTHOR: FORTINO,DOC PHYSICIAN: REFERRING PHYSICIAN: CHARANJIT CORONADO MD DATE OF SERVICE: 06/29/18 Discharge Plan Patient Name: KRISHNA MOODY Facility: [facility]:[place] : 1955 Planned Disposition: Home Anticipated Discharge Date: 06/29/18 Discharge Date: 06/29/2018 Expected LOS: 4 Initial Reviewer: [email or web address] Initial Review Date: 06/27/2018 Generated: 06/29/18 5:07 pm Comments DCP- Discharge Planning Updated by [email or web address]: Moira Floyd on 06/29/18 8:[address] Received orders for discharge. I called [facility] and cancelled Monday's appointment. I spoke with [facility] and they will see him for nursing and PT on Monday. Patient is in agreement to this. He denies need for DME. Home today with home health. CM will continue to follow and assist with discharge planning/needs. DCP- Discharge Planning Updated by [email or web address]: Moria Floyd on 06/27/18 1:[address] Patient Name: KRISNHA MOODY Admission Status: Elective Accout number: [id number] Admission Date: 06-25-2018 : 1955 Admission Diagnosis: Attending: CHARANJIT CORONADO Current LOS: 2 Anticipated DC Date: 06-29-2018 Planned Disposition: Home Primary Insurance: [facility] MEDICARE SOLUTIONS Discharge Planning Comments: CM met with patient and his to discuss discharge planning/needs. He lives with his and plans on returning home with her and feels this is a safe discharge. States he is independent with all ADL's and AIDL's. States he would like to use [facility] for outpatient therapy. I called and spoke to them and his first appointment is Monday at 0745. I gave the appointment time and date to patient's . States he has all the DME needed at home. CM will continue to follow and assist with discharge planning/needs. [facility]: P - [phone] Fax - [phone] Motorized Squad Lieutenant: Moira Floyd DCPIA - Discharge Planning Initial Assessment Updated by [email or web address]: Moira Mariel on 06/27/18 2:43 pm * Is the patient Alert and Oriented? Yes * How many steps to enter\exit or inside your home? 2/0 * PCP Dr. Vania Miranda * Pharmacy [facility] [address] * Preadmission Environment Home with Family * ADLs Independent * Equipment Cane Rolling Walker Shower Chair * List name and contact numbers for known caregivers / representatives who currently or will assist patient after discharge: Michelle Moody - - [phone] * Verbal permission to speak to the caregivers and representatives has been obtained from the patient. Yes * Community resources currently utilized None * Additional services required to return to the preadmission environment? Yes * Can the patient safely return to the preadmission environment? Yes * Has this patient been hospitalized within the prior 30 days at any hospital? No Coverage Notice Reviewer: [email or web address] - Moira Floyd Notice Issued Date-Time: 06/29/2018 9:38 Notice Type: IM Discharge Notice Notice Delivered To: Patient Relationship to Patient: Self Restaurant Busser Name: Delivery Method: HAND - Hand Delivered Kim Days: Prior Verbal Notification: Recipient Understood Notice: Yes Recipient Signature: Yes Med Rec Note Co-signed by Attending: Coverage Notice Comment: IMM EXPLAINED, SIGNED, GIVEN, ORIGINAL PLACED IN MR Last DP export: 06/29/18 8:46 am Patient Name: KRISHNA MOODY Page 98243 at 1607 All edits/amendments must be made on the electronic document DICTATION DATE: 06/29/18 1607 QUICK MIXER OPERATOR: YOSHI 06/29/18 1607 RPT#: [id number] DC DATE:06/29/18 STATUS: DIS IN [facility] [address] [place] [address] END OF REPORT
== END 2018-06-29 13:30 | disposition home health service (06) | DRG 470 ==
LOC: D.SDCHOLD 06-20 10:00 → D.MS 06-25 10:00 → D.SDCHOLD 06-25 12:00 → D.MS 06-25 16:18
PROVIDERS: ADMIT Orthopaedic Surgery; ATTEND Orthopaedic Surgery
PROC: 0SRB0JZ Replacement of Left Hip Joint with Synthetic Substitute, Open Approach (ICD-10-PCS; principal; 2018-06-25 12:00)
DX: M16.12 Unilateral primary osteoarthritis, left hip (principal); I10 Essential (primary) hypertension; G62.9 Polyneuropathy, unspecified; R33.9 Retention of urine, unspecified

== ENCOUNTER 2018-07-26 07:00 | Day surgery (SDC) | payer MEDICARE, OTHER ==
[2018-07-24 13:10] LABS: HEMOGLOBIN 12.4 g/dL (13.5-17.5); MCHC 32.6 g/dL (31.0-37.0); MCV 97.9 fL (80.0-100.0); MEAN PLATELET VOLUME 9.5 fL (7.4-10.4); RBC 3.88 10x6/uL (4.20-6.10); RDW 14.9 % (11.5-14.5); WBC 8.4 10x3/uL (4.8-10.8)
[~2018-07-26] VITALS: Ht 180.3 cm; Wt 146.1 kg
[~2018-07-26 07:00] MED LIST changes: +AMBIEN10 MG PO; +BACTROBAN NASAL1 GM NASAL; +CENTRUM MEN'S1 EACH PO; +CLARITIN 10 MG10 MG PO; +FLINTSTONES WIT18 MG PO; +FLOMAX0.4 MG PO; +FUROSEMIDE20 MG PO; +HYDROCODON-ACE1 EA10 PO; +PROSCAR5 MG PO; +ROXICODONE15 MG PO; +WELLBUTRIN SR150 MG PO
[2018-07-26 09:00] VITALS: Ht 180.3 cm; Wt 146.1 kg
--- NOTE | 2018-07-26 13:08 | OP ---
PATIENT NAME: KRISHNA NICK MEDICAL RECORD: [id number] :[birth year] [facility] AD[facility] DATE: SURGEON: NORMAN BIRCH MD DATE OF OPERATION: 07/26/2018 SURGEON: Norman Birch MD ANESTHESIA: TIVA by KWAKU Petersen CRNA DIAGNOSES: Obstructive benign prostatic hyperplasia with history of urinary retention. PROCEDURE: UroLift times 4 implants in the box configuration. FINDINGS: Primarily anterior lobe and bladder neck obstruction. Single ureteral orifices bilaterally with no bladder tumors. ESTIMATED BLOOD LOSS: Minimal. CLINICAL HISTORY: This is a 62-year-old male, who went into urinary retention after having a left hip replacement. I saw him in the hospital in 06/27/2018 and I started him on finasteride and tamsulosin at that time. He has had voiding symptoms for some time with nocturia times 2-3 with bed wetting. In the daytime, he does not have urinary frequency, but he does have urgency. He has a weak urinary flow. A tamsulosin that I prescribed for him is giving him lightheadedness. His IPPS score is 33 and his quality of life score is 5. I removed the Bennett catheter in the office and he was able to void with a postvoid residual of 0. He wishes to have the UroLift procedure done, so that he can get off the BPH medications. HE IS ALLERGIC TO ASA AND DEMEROL. He was given Ancef dimensional inspector to the OR. DESCRIPTION OF PROCEDURE: The patient was given IV sedation. He was then placed in the dorsal lithotomy position and prepped and draped. The UroLift scope was introduced. The obstruction was primarily at the bladder neck and from an overhanging anterior tissue. The lateral lobes are not obstructive, especially near the verumontanum. Therefore, a box configuration of UroLift implant was placed about 1.5 cm distal to the bladder neck. Two implants were placed on the left side. They were placed at about the 1 o'clock position and about the 3 o'clock position. Two more implants were placed on the right side at about 11 o'clock and 9 o'clock positions. This produced a rectangular opening of the bladder neck and made it quite widely open. The bladder was then partly emptied through the cystoscope sheath and the scope was removed. I will see the patient in followup in 1 months' time for followup. TRANSINT:[id number] Voice Confirmation ID: [id number] DOCUMENT ID: [id number] NORMAN BIRCH MD at 1308 CC: [id number] DICTATION DATE: 07/26/18 1144 OBSTETRICS GYN PHYSICIAN: 07/26/18 1234 REG [facility] [address] [place] [id number]
--- NOTE | 2018-07-26 13:55 | NUR ---
PATIENT HAS AMBULATED TO BATHROOM MULTIPLE TIMES ATTEMPTING TO URINATE, PATIENT CALLS OUT AND STATES THAT HE HAS BEEN SUCCESSFUL AND HAS URINATED LARGE AMOUNT IN TOILET, PINK-TINGED FLUID SEEN IN TOILET.
--- NOTE | 2018-07-26 14:15 | NUR ---
PATIENT DRESSED IN PERSONAL CLOTHING, DISCHARGE INSTRUCTIONS REVIEWED. PATIENT DISCHARGED HOME VIA WHEELCHAIR TO PRIVATE VEHICLE WITH SPOUSE
== END 2018-07-26 14:15 | disposition home or self-care (01) ==
LOC: D.OPS 07:00 → D.PAN 09:15 → D.OPS 09:15
PROVIDERS: Anesthesiology; ATTEND Urology
DX: N40.1 Benign prostatic hyperplasia with lower urinary tract symptoms (principal); N13.8 Other obstructive and reflux uropathy; R35.1 Nocturia; R33.8 Other retention of urine; R39.15 Urgency of urination; R39.12 Poor urinary stream; Z88.6 Allergy status to analgesic agent; Z88.5 Allergy status to narcotic agent; Z96.642 Presence of left artificial hip joint; Z01.812 Encounter for preprocedural laboratory examination

== ENCOUNTER → 2018-10-08 13:25 | Outpatient (CLI) | payer MEDICARE, OTHER ==
[2018-07-26 09:00] VITALS: BMI 45.0
[~2018-10-08 13:25] MED LIST changes: +OMNICEF300 MG PO; +SULFAMETHOXAZOL1 TA2 PO
== END | disposition home or self-care (01) ==
LOC: D.LAB 13:25
PROVIDERS: ATTEND Emergency Medicine
DX: R50.81 Fever presenting with conditions classified elsewhere (principal)

== ENCOUNTER → 2018-12-04 07:46 | Outpatient (CLI) | payer MEDICARE ==
[2018-07-26 09:00] VITALS: BMI 45.0
[~2018-12-04 07:46] MED LIST changes: -OMNICEF300 MG PO; -SULFAMETHOXAZOL1 TA2 PO
== END | disposition home or self-care (01) ==
LOC: D.US 07:46
PROVIDERS: ATTEND Internal Medicine Nephrology
DX: N18.9 Chronic kidney disease, unspecified (principal); N28.1 Cyst of kidney, acquired

== ENCOUNTER 2019-01-06 09:38 | Inpatient (IN) | payer MEDICARE, OTHER ==
[~2019-01-06] VITALS: Ht 180.3 cm; Wt 149.7 kg
[2019-01-06 09:57] LABS: APPEARANCE CLEAR (CLEAR); BILIRUBIN NEGATIVE (NEGATIVE); COLOR YELLOW (YELLOW); GLUCOSE NEGATIVE (NEGATIVE); KETONE NEGATIVE (NEGATIVE); NITRITE NEGATIVE (NEGATIVE); PROTEIN NEGATIVE (NEGATIVE); UROBILINOGEN NORMAL (NORMAL)
[2019-01-06 10:17] LABS: BASOPHILS 0.2 % (0-2); EOSINOPHILS 0.4 % (0-7); HEMATOCRIT 38.5 % (42.0-54.0); HEMOGLOBIN 13.4 g/dL (13.5-17.5); IMMATURE GRANULOCYTES 0.2 % (0-5); LYMPHOCYTES 4.2 % (15-50); MCH 33.2 pg (26.0-34.0); MCHC 34.8 g/dL (31.0-37.0); MCV 95.3 fL (80.0-100.0); MEAN PLATELET VOLUME 9.5 fL (7.4-10.4); PLATELET COUNT 141 10x3/uL (130-400); RBC 4.04 10x6/uL (4.20-6.10); RDW 13.5 % (11.5-14.5); WBC 10.9 10x3/uL (4.8-10.8)
[2019-01-06 10:24] LABS: INR 0.96 (0.85-1.17); PROTIME 12.3 SECONDS (11.6-15.0)
[2019-01-06 10:30] LABS: ALBUMIN 3.5 g/dL (3.4-5.0); ALKALINE PHOSPHATASE 98 U/L (46-116); ALT (SGPT) 22 U/L (10-68); CALC OSMOLALITY 276 mosm/kg (275-300); CALCIUM 8.5 mg/dL (8.5-10.1); CARBON DIOXIDE 31.6 mmol/L (21.0-32.0); CHLORIDE - SERUM 99 mmol/L (98-107); CREATININE - SERUM 1.3 mg/dL (0.6-1.3); GLUCOSE 124 mg/dL (74-106); PROTEIN - SERUM 6.6 g/dL (6.4-8.2); SODIUM 136 mmol/L (136-145); UREA NITROGEN 25 mg/dL (7-18); eGFR NON AFRICAN AMERICAN 59 mL/min (90-120)
[2019-01-06 10:41] LABS: CKMB 1.6 U/L (0.0-3.6); CREATINE KINASE 167 UL (21-232)
[2019-01-06 10:43] LABS: TROPONIN-I < 0.017 ng/mL (0.000-0.060)
--- NOTE | 2019-01-06 10:58 | NUR ---
PT IS LETHARGIC WILL AROUSE WHEN SPOKEN TO. AT BEDSIDE. EMS GAVE PT 500 CC BOLUS OF NS. LR GOING AT THIS TIME. NS TO FOLLOW. LACTIC ACID 2.1. IV ANTIBIOTIC IS IN .
[2019-01-06 10:59] VITALS: BP 125/53
--- NOTE | 2019-01-06 11:01 | NUR ---
TYLENOL GIVEN FOR PTS TEMP. HE SHERRY. WELL.
--- NOTE | 2019-01-06 11:18 | NUR ---
AFTER THIS BOLUS OF NS, DR. GRUBER INSTRUCTS TO RUN NS AT 100.
[2019-01-06 11:40] VITALS: BP 125/53
--- NOTE | 2019-01-06 14:00 | NUR ---
LEVTOMEKAUIN IN PRIOR TO TAKING PT TO THE FLOOR. PT SHERRY.WELL.
[2019-01-06 15:13] VITALS: BP 137/64; BMI 46.1
[2019-01-06 19:34] LABS: CKMB 2.1 U/L (0.0-3.6)
[2019-01-06 19:35] LABS: CREATINE KINASE 401 UL (21-232); TROPONIN-I < 0.017 ng/mL (0.000-0.060)
[2019-01-06 19:55] VITALS: BP 143/60
--- NOTE | 2019-01-06 19:57 | NUR ---
PATIENT RESTING IN BED WITH GUEST AT BEDSIDE AND NO S/S OF DISTRESS. PATIENT DENIES NEEDS AT THIS TIME. BED IN LOWEST POSITION AND CALL LIGHT WITHIN REACH. ENCOURAGED THE PATIENT TO CALL IF HE HAS NEEDS. WILL CONTINUE TO MONITOR.
[2019-01-06 23:52] VITALS: BP 118/56
[2019-01-07 00:38] LABS: CKMB 1.4 U/L (0.0-3.6); CREATINE KINASE 315 UL (21-232)
[2019-01-07 00:41] LABS: TROPONIN-I < 0.017 ng/mL (0.000-0.060)
[2019-01-07 04:13] VITALS: BP 130/56
[2019-01-07 07:37] LABS: CREATINE KINASE 204 UL (21-232); MAGNESIUM - SERUM 1.7 mg/dL (1.8-2.4); TROPONIN-I < 0.017 ng/mL (0.000-0.060)
[2019-01-07 08:00] VITALS: BP 143/69
[2019-01-07 08:01] LABS: CKMB 1.2 U/L (0.0-3.6)
--- NOTE | 2019-01-07 10:16 | NUR ---
THE PATIENT APPEARED TO BE SLEEPING BUT EASILY AWOKE WHEN STAFF ENTERED HIS ROOM. BED IS IN THE LOW POSITION WITH SIDERAILS X2 AND CALL LIGHT WITHIN REACH. THE PATIENT WAS EDUCATED ON THE USE OF A CALL LIGHT AND DEMONSTRATES UNDERSTANDING VIA TEACHBACK METHOD. THE PATIENT APPEARS COMFORTABLE AND HAS NO QUESTIONS OR COCNERNS AT THIS TIME.
[2019-01-07 11:00] VITALS: BP 118/60
[2019-01-07 11:19] LABS: % SATURATION 9 % (15-55); IRON 18 ug/dl (35-150); TOTAL IRON BIND CAPACITY 186 ug/dl (260-445); UNSAT IRON BIND CAPACITY 168 ug/dl (150-375)
[2019-01-07 13:04] VITALS: BMI 46.0
[2019-01-07 16:00] VITALS: BP 126/49
--- NOTE | 2019-01-07 17:50 | MORECARE ---
CASE MANAGEMENT DISCHARGE SUMMARY PATIENT: KRISHNA NICK UNIT: [id number] ADM DATE: 01/06/19 AGE: 63 : 56 SEX: M ROOM/BED: D.1206 AUTHOR: FORTINO,DOC PHYSICIAN: REFERRING PHYSICIAN: ARNULFO CHRISTINE MD DATE OF SERVICE: 01/07/19 Discharge Plan Patient Name: KRISHNA NICK [facility] [facility] 1955 Planned Disposition: Home Anticipated Discharge Date: Discharge Date: Expected LOS: Initial Reviewer: [id number] Initial Review Date: 01/06/2019 Generated: 01/07/19 6:50 pm Comments DCP- Discharge Planning Updated by [id number]: Sweta Emmanuel on 01/07/19 4:[address] Patient Name: KRISHNA NICK Admission Status: ER Accout number: [id number] Admission Date: 01-06-2019 : 1955 Admission Diagnosis: Attending: ARNULFO CHRISTINE Current LOS: 1 Anticipated DC Date: Planned Disposition: Home Primary Insurance: [facility] MEDICARE SOLUTIONS Discharge Planning Comments: CM met with patient at bedside after explaining CM role and obtaining verbal consent. Patient lives at home with his Jacob where he is independent with his care and plans to return there upon discharge. Patient feels this would be a safe discharge. CM discussed availability / needs of home health and medical equipment. Patient denies any discharge needs at this time. Patient states he will have his family drive him home upon discharge. CM will continue to follow and assist as needed with discharge planning / needs. Facility Service Associate: Sweta Emmanuel DCPIA - Discharge Planning Initial Assessment Updated by [email or web address]: Sweta Emmanuel on 01/07/19 5:43 pm * Is the patient Alert and Oriented? Yes * How many steps to enter\exit or inside your home? * PCP MURPHY * [facility] * Preadmission Environment Home with Family * ADLs Independent * Equipment CPAP * Other Equipment WALKER , CANE * List name and contact numbers for known caregivers / representatives who currently or will assist patient after discharge: JACOB NICK - - [phone] * Verbal permission to speak to the caregivers and representatives has been obtained from the patient. Yes * Community resources currently utilized None * Additional services required to return to the preadmission environment? No * Can the patient safely return to the preadmission environment? Yes * Has this patient been hospitalized within the prior 30 days at any hospital? No Patient Name: KRISHNA NICK Page [phone] at 1750 All edits/amendments must be made on the electronic document DICTATION DATE: 01/07/191749 FINANCIAL REP: YOSHI 01/07/191749 RPT#: [id number] DC DATE: STATUS: ADM IN [facility] [address] [place] [address] END OF REPORT
--- NOTE | 2019-01-07 19:09 | NUR ---
PATIENT RESTING IN BED WITH NO S/S OF DISTRESS. PATIENT REQUESTED PAIN PILL FOR CHRONIC BACK AND LEG PAIN. PATIENT DENIES NEEDS AT THIS TIME. BED IN LOWEST POSITION AND CALL LIGHT WITHIN REACH. ENCOURAGED THE PATIENT TO CALL IF HE HAS NEEDS. WILL CONTINUE TO MONITOR.
[2019-01-07 20:18] VITALS: BP 129/87
[2019-01-08] VITALS: BP 135/69
[2019-01-08 04:00] VITALS: BP 150/72
[2019-01-08 07:13] LABS: BASOPHILS 0.2 % (0-2); EOSINOPHILS 1.1 % (0-7); HEMATOCRIT 32.9 % (42.0-54.0); IMMATURE GRANULOCYTES 0.3 % (0-5); LYMPHOCYTES 9.2 % (15-50); MCH 32.3 pg (26.0-34.0); MCHC 33.4 g/dL (31.0-37.0); MCV 96.5 fL (80.0-100.0); MEAN PLATELET VOLUME 9.8 fL (7.4-10.4); MONOCYTES 6.2 % (2-11); PLATELET COUNT 158 10x3/uL (130-400); RBC 3.41 10x6/uL (4.20-6.10); RDW 14.2 % (11.5-14.5)
[2019-01-08 07:34] LABS: ALKALINE PHOSPHATASE 71 U/L (46-116); ALT (SGPT) 19 U/L (10-68); CALCIUM 7.9 mg/dL (8.5-10.1); CARBON DIOXIDE 32.4 mmol/L (21.0-32.0); CHLORIDE - SERUM 103 mmol/L (98-107); GLUCOSE 137 mg/dL (74-106); MAGNESIUM - SERUM 1.8 mg/dL (1.8-2.4); POTASSIUM - SERUM 4.5 mmol/L (3.5-5.1); PROTEIN - SERUM 5.3 g/dL (6.4-8.2); SODIUM 139 mmol/L (136-145)
[2019-01-08 07:39] LABS: ALBUMIN 2.6 g/dL (3.4-5.0); CALC OSMOLALITY 277 mosm/kg (275-300); CREATININE - SERUM 0.7 mg/dL (0.6-1.3); UREA NITROGEN 8 mg/dL (7-18); eGFR NON AFRICAN AMERICAN > 90 mL/min (90-120)
--- NOTE | 2019-01-08 07:59 | NUR ---
REPORT RECIEVED. PT SITTING UP IN BED EATTING BREAKFAST. RR EVEN AND UNLABORED. NO DISTRESS NOTED. R HAND PIV INFUSING NS @ 100. BED LOCKED AND IN LOWEST POSITION. CALL LIGHT WITHIN REACH. WILL CTM
[2019-01-08 09:39] VITALS: BP 160/70
--- NOTE | 2019-01-08 11:55 | NUR ---
UPON ENTERING THE ROOM PT IN BATHROOM WITH PIV IN FLOOR. PT STATES IT MUST OF SLIPED OUT WHEN HE WENT TO REACH FOR THE TOILET PAPER. BLEEDING CONTROLED. ATTEMPTED TO OBTAIN ANOTHER PIV X1 ATTEMPT AND WAS UNSUCCESSFUL. YOUNG JUARES WAS SUCCESSFUL X1 ATTEMPT. PT NOW HAS PIV IN R FA.
[2019-01-08 15:02] VITALS: Ht 180.3 cm; Wt 149.7 kg
--- NOTE | 2019-01-08 19:00 | NUR ---
PATIENT LAYING IN BED. PATIENT HAS NO COMPLAINTS AT THIS TIME. NO DISTRESS NOTED.
[2019-01-08 20:02] VITALS: BP 167/97
[2019-01-09] VITALS: BP 128/65
--- NOTE | 2019-01-09 00:20 | NUR ---
PATIENT LAYING IN BED, EYES CLOSED, CHEST RISING AND FALLING. NO DISTRESS NOTED.
[2019-01-09 04:00] VITALS: BP 173/88
--- NOTE | 2019-01-09 04:35 | NUR ---
I have reviewed this patient and I concur with the Shift Assessment completed by the Licensed Practical Nurse today this shift.
--- NOTE | 2019-01-09 07:20 | NUR ---
REPORT RECIEVED. PT LYING ON RIGHT SIDE. RR EVEN AND UNLABORED. PT HAS A R HAND PIV INFUSING D5@100. BED LOCKED AND IN LOWEST POSITION. CALL LIGHT WITHIN REACH. WILL CTM
[2019-01-09 07:39] LABS: BASOPHILS 0.3 % (0-2); HEMATOCRIT 32.8 % (42.0-54.0); HEMOGLOBIN 11.1 g/dL (13.5-17.5); IMMATURE GRANULOCYTES 0.1 % (0-5); LYMPHOCYTES 10.5 % (15-50); MCH 32.2 pg (26.0-34.0); MCHC 33.8 g/dL (31.0-37.0); MCV 95.1 fL (80.0-100.0); MEAN PLATELET VOLUME 9.7 fL (7.4-10.4); MONOCYTES 5.5 % (2-11); NEUTROPHILS 80.6 % (40-80); PLATELET COUNT 155 10x3/uL (130-400); RBC 3.45 10x6/uL (4.20-6.10); RDW 13.6 % (11.5-14.5)
[2019-01-09 07:55] LABS: ALBUMIN 2.5 g/dL (3.4-5.0); ALKALINE PHOSPHATASE 68 U/L (46-116); ALT (SGPT) 24 U/L (10-68); BILIRUBIN - TOTAL 0.34 mg/dL (0.2-1.3); CALC OSMOLALITY 276 mosm/kg (275-300); CALCIUM 8.4 mg/dL (8.5-10.1); CARBON DIOXIDE 33.3 mmol/L (21.0-32.0); CHLORIDE - SERUM 104 mmol/L (98-107); CREATININE - SERUM 0.7 mg/dL (0.6-1.3); GLUCOSE 106 mg/dL (74-106); MAGNESIUM - SERUM 1.6 mg/dL (1.8-2.4); POTASSIUM - SERUM 4.5 mmol/L (3.5-5.1); PROTEIN - SERUM 5.1 g/dL (6.4-8.2); SODIUM 140 mmol/L (136-145); UREA NITROGEN 7 mg/dL (7-18); eGFR NON AFRICAN AMERICAN > 90 mL/min (90-120)
[2019-01-09 08:00] VITALS: BP 196/94
--- NOTE | 2019-01-09 12:57 | NUR ---
PT RETURN TO ROOM FROM BRONCH. VS BP 180/92, HR 76, RR 16, SAT 92%. PT IS RESTING EASY TO AROUSE. WILL CTM
[2019-01-09 13:06] VITALS: BP 180/92
--- NOTE | 2019-01-09 14:32 | EC ---
PATIENT:KRISHNA NICK DATE OF SERVICE: 01/06/19 SEX: M MEDICAL RECORD: [id number] DATE OF : 57 LOCATION:D.M3 D.120 AGE OF PATIENT: 63 ADMISSION DATE: 01/06/19 REFERRING PHYSICIAN: INTERPRETING PHYSICIAN: RODRÍGUEZ MCGRATH MD ECHOCARDIOGRAM REPORT ECHO CHARGES 4 ECHO COMPLETE Date: 01/07/19 CLINICAL DIAGNOSIS: CHF, ECHOCARDIOGRAPHIC MEASUREMENTS (adult normal given) AC root (d.<3.7cm) 3.5 cm LV Septum d (<1.2 cm> 0.9 cm Valve Excursion 2.1 cm LV Septum (systole) 1.5 cm Left Atria (s.<4.0cm> 4.7 cm LVPW d(<1.2cm) 1.2 cm RV (d.<2.3cm) 4.2 cm LVPW (sytole) 1.6 cm LV diastole(<5.6CM) 6.8 cm MV E-F(>70mm/sec) cm LV systole 4.8 cm LVOT Diameter 2.4 cm MV exc.(>10mm) cm Est.ejection fraction (50-75%) % DOPPLER: LVIT cm/sec A 74 cm/sec E 116 cm/sec LA cm/sec RVSP 22.1 mmHg LVOT 149 cm/sec AOP1/2T m/s Asc. Ao 196 cm/sec RVOT 115 cm/sec RA cm/sec PA 129 cm/sec AV Gradient Peak 15.3 mmHg AV Mean 7.8 mmHg AV Area 3.2 cm MV Gradient Peak 5.2 mmHg MV Mean 2.8 mmHg MV Area cm COMMENTS: Hand Marker: Henna [facility] Turning Machine Operator: 1 Dr. Mcgrath TAPE# PACS Pericardial Effusion N DATE OF SERVICE: 01/06/2019 FINDINGS: 1. Left ventricular chamber size is mildly dilated. Left ventricular systolic function is preserved at 50% to 55%. 2. Left atrium is enlarged at 4.7 cm. Right atrium and right ventricular chamber sizes are as well mildly dilated. 3. Valvular structures have normal structure and motion. 4. Doppler interrogation reveals mild tricuspid regurgitation, no other valvular insufficiency or stenosis. Pulmonary systolic pressure is estimated at ECHOCARDIOGRAM REPORT [id number] KRISHNA NICK 22 mmHg. 5. No evidence of pericardial effusion or left ventricular thrombus. TRANSINT:[id number] Voice Confirmation ID: [id number] DOCUMENT ID: [id number] RODRÍGUEZ MCGRATH MD at 1432 CC: [id number] DICTATION DATE: 01/07/19 1536 FARM DEMONSTRATOR: 01/07/19 1847 ADM IN [facility] [address] [place] [address]
[2019-01-09 16:00] VITALS: BP 176/91
--- NOTE | 2019-01-09 19:30 | NUR ---
REPORT RECEIVED, WILL CONTINUE POC. PATIENT IS A/OX4, UP AD JOSI. IN BED, AT BEDSIDE. RR EVEN AND UNLABORED, NO S/S OF DISTRESS OBSERVED. IV TO RT WRIST WITH D5NS INFUSING, PATENT, DRSG C/D/I. PATIENT DENIES NEEDS AT THIS TIME. CL IN REACH, BED LOCKED AND LOWERED. WILL CTM.
[2019-01-09 20:00] VITALS: BP 141/73
[2019-01-10 01:21] VITALS: BP 144/82
--- NOTE | 2019-01-10 04:34 | NUR ---
I have reviewed this patient and I concur with the Shift Assessment completed by the Licensed Practical Nurse today this shift.
--- NOTE | 2019-01-10 07:20 | NUR ---
PT RESTING IN BED, SHIFT ASSESSMENT PERFORMED. DENIES ANY NEEDS AT THIS TIME, WILL CONT TO FOLLOW POC
[2019-01-10 07:55] LABS: BASOPHILS 0.3 % (0-2); EOSINOPHILS 4.6 % (0-7); HEMATOCRIT 33.1 % (42.0-54.0); HEMOGLOBIN 11.4 g/dL (13.5-17.5); IMMATURE GRANULOCYTES 0.3 % (0-5); LYMPHOCYTES 12.3 % (15-50); MCH 32.5 pg (26.0-34.0); MCHC 34.4 g/dL (31.0-37.0); MCV 94.3 fL (80.0-100.0); MEAN PLATELET VOLUME 9.8 fL (7.4-10.4); MONOCYTES 7.5 % (2-11); RBC 3.51 10x6/uL (4.20-6.10); RDW 13.4 % (11.5-14.5); WBC 6.9 10x3/uL (4.8-10.8)
[2019-01-10 07:57] LABS: PLATELET COUNT 189 10x3/uL (130-400)
[2019-01-10 08:02] VITALS: BP 179/88
[2019-01-10 08:09] LABS: ALBUMIN 2.6 g/dL (3.4-5.0); ALKALINE PHOSPHATASE 70 U/L (46-116); ALT (SGPT) 23 U/L (10-68); BILIRUBIN - TOTAL 0.46 mg/dL (0.2-1.3); CALC OSMOLALITY 271 mosm/kg (275-300); CALCIUM 8.8 mg/dL (8.5-10.1); CARBON DIOXIDE 34.8 mmol/L (21.0-32.0); CHLORIDE - SERUM 101 mmol/L (98-107); CREATININE - SERUM 0.6 mg/dL (0.6-1.3); GLUCOSE 108 mg/dL (74-106); MAGNESIUM - SERUM 1.6 mg/dL (1.8-2.4); POTASSIUM - SERUM 4.1 mmol/L (3.5-5.1); PROTEIN - SERUM 6.1 g/dL (6.4-8.2); SODIUM 137 mmol/L (136-145); eGFR NON AFRICAN AMERICAN > 90 mL/min (90-120)
[2019-01-10 08:11] LABS: UREA NITROGEN 5 mg/dL (7-18)
--- NOTE | 2019-01-10 09:23 | NUR ---
PIV TO RIGHT WRIST INFILTRATED, PIV REMOVED WITH CATHETER TIP INTACT
--- NOTE | 2019-01-10 12:10 | NUR ---
PT RESTING IN BED EATING LUNCH, SPOUSE AT BEDSIDE. DENIES ANY NEEDS AT THIS TIME. WILL CONT TO FOLLOW POC
[2019-01-10] MEDS ORDERED: OMNICEF300 MG PO (12:29)
[2019-01-10] MEDS ORDERED: SULFAMETHOXAZOL1 TA2 PO (12:29)
--- NOTE | 2019-01-10 13:00 | MORECARE ---
CASE MANAGEMENT DISCHARGE SUMMARY PATIENT: KRISHNA NICK UNIT: [id number] ADM DATE: 01/06/19 AGE: 63 : 57 SEX: M ROOM/BED: D.1206 AUTHOR: FORTINODOC PHYSICIAN: REFERRING PHYSICIAN: ARNULFO CHRISTINE MD DATE OF SERVICE: 01/10/19 Discharge Plan Patient Name: KRISHNA NICK Facility: [facility]:[place] : 1955 Planned Disposition: Home Anticipated Discharge Date: Discharge Date: Expected LOS: Initial Reviewer: [id number] Initial Review Date: 01/06/2019 Generated: 01/10/19 2:00 pm Comments DCP- Discharge Planning Updated by [email or web address]: Jacqueline Alvarado on 01/10/19 11:[address] Patient Name: KRISHNA NICK Encounter No: [id number] : 1955 Primary Insurance: [facility] MEDICARE SOLUTIONS Anticipated DC Date: Planned Disposition: Home External Planned Provider: : DCP follow-up note: Patient and family in agreement with discharge plan. No changes to plan. IMM SIGNED. PATIENT READY TO GO HOME. Case management will follow and assist as needed. Jacqueline Alvarado DCP- Discharge Planning Updated by [email or web address]: Sweta Emmanuel on 01/07/19 4:[address] Patient Name: KRISHNA NICK Admission Status: ER Accout number: [id number] Admission Date: 01-06-2019 : 1955 Admission Diagnosis: Attending: ARNULFO CHRISTINE Current LOS: 1 Anticipated DC Date: Planned Disposition: Home Primary Insurance: [employer] MEDICARE SOLUTIONS Discharge Planning Comments: CM met with patient at bedside after explaining CM role and obtaining verbal consent. Patient lives at home with his Jacob where he is independent with his care and plans to return there upon discharge. Patient feels this would be a safe discharge. CM discussed availability / needs of home health and medical equipment. Patient denies any discharge needs at this time. Patient states he will have his family drive him home upon discharge. CM will continue to follow and assist as needed with discharge planning / needs. Labourers: Sweta Emmanuel DCPIA - Discharge Planning Initial Assessment Updated by [email or web address]: Sweta Emmanuel on 01/07/19 5:43 pm * Is the patient Alert and Oriented? Yes * How many steps to enter\exit or inside your home? * PCP MURPHY * Pharmacy [facility] * Preadmission Environment Home with Family * ADLs Independent * Equipment CPAP * Other Equipment WALKER , CANE * List name and contact numbers for known caregivers / representatives who currently or will assist patient after discharge: JACOB NICK - - [phone] * Verbal permission to speak to the caregivers and representatives has been obtained from the patient. Yes * Community resources currently utilized None * Additional services required to return to the preadmission environment? No * Can the patient safely return to the preadmission environment? Yes * Has this patient been hospitalized within the prior 30 days at any hospital? No Coverage Notice Reviewer: [email or web address] Trung Alvraado Notice Issued Date-Time: 01/10/2019 12:47 Notice Type: IM Discharge Notice Notice Delivered To: Patient Relationship to Patient: Slate Roofer Helper Name: Delivery Method: HAND - Hand Delivered Kim Days: Prior Verbal Notification: Recipient Understood Notice: Yes Recipient Signature: Yes Med Rec Note Co-signed by Attending: Coverage Notice Comment: Last DP export: 01/07/19 4:50 pm Patient Name: KRISHNA NICK Page [phone] at 1300 All edits/amendments must be made on the electronic document DICTATION DATE: 01/10/[address] PACKER OPERATOR: YOSHI 01/10/19 1300 RPT#: [id number] DC DATE: STATUS: ADM IN [facility] [address] [place] [address] END OF REPORT
--- NOTE | 2019-01-10 16:00 | NUR ---
DISCHARGE INSTRUCTIONS REVIEWED WITH PT AND ALL QUESTIONS ANSWERED. TELEMETRY REMOVED AND TAKEN TO MENDY, RAMP BOSS. PT TAKEN TO FRONT OF HOSPITAL VIA WHEELCHAIR
--- NOTE | 2019-01-11 07:54 | MORECARE ---
CASE MANAGEMENT DISCHARGE SUMMARY PATIENT: KRISHNA NICK UNIT: [id number] ADM DATE: 01/06/19 AGE: 63 : 57 SEX: M ROOM/BED: D.1206 AUTHOR: HOSEA FREITAS PHYSICIAN: REFERRING PHYSICIAN: ARNULFO CHRISTINE MD DATE OF SERVICE: 01/11/19 Discharge Plan Patient Name: KRISHNA NICK Facility: [facility]:[place] : 1955 Planned Disposition: Home Anticipated Discharge Date: Discharge Date: 01/10/2019 Expected LOS: Initial Reviewer: [email or web address] Initial Review Date: 01/06/2019 Generated: 01/11/19 8:54 am Comments DCP- Discharge Planning Updated by [id number]: Jacqueline Alvarado on 01/10/19 11:[address] Patient Name: KRISHNA NICK Encounter No: [id number] : 1955 Primary Insurance: [facility] MEDICARE SOLUTIONS Anticipated DC Date: Planned Disposition: Home External Planned Provider: : DCP follow-up note: Patient and family in agreement with discharge plan. No changes to plan. IMM SIGNED. PATIENT READY TO GO HOME. Case management will follow and assist as needed. Jacqueline Alvarado DCP- Discharge Planning Updated by [email or web address]: Sweta Emmanuel on 01/07/19 4:[address] Patient Name: KRISHNA NICK Admission Status: ER Accout number: [id number] Admission Date: 01-06-2019 : 1955 Admission Diagnosis: Attending: ARNULFO CHRISTINE Current LOS: 1 Anticipated DC Date: Planned Disposition: Home Primary Insurance: [facility] MEDICARE SOLUTIONS Discharge Planning Comments: CM met with patient at bedside after explaining CM role and obtaining verbal consent. Patient lives at home with his Jacob where he is independent with his care and plans to return there upon discharge. Patient feels this would be a safe discharge. CM discussed availability / needs of home health and medical equipment. Patient denies any discharge needs at this time. Patient states he will have his family drive him home upon discharge. CM will continue to follow and assist as needed with discharge planning / needs. Voice Over Announcer: Sweta Emmanuel DCPIA - Discharge Planning Initial Assessment Updated by [id number]: Sweta Emmanuel on 01/07/19 5:43 pm * Is the patient Alert and Oriented? Yes * How many steps to enter\exit or inside your home? * PCP MURPHY * Pharmacy [facility] * Preadmission Environment Home with Family * ADLs Independent * Equipment CPAP * Other Equipment WALKER , CANE * List name and contact numbers for known caregivers / representatives who currently or will assist patient after discharge: JACOB NICK - - [phone] * Verbal permission to speak to the caregivers and representatives has been obtained from the patient. Yes * Community resources currently utilized None * Additional services required to return to the preadmission environment? No * Can the patient safely return to the preadmission environment? Yes * Has this patient been hospitalized within the prior 30 days at any hospital? No Coverage Notice Reviewer: [id number] Trung Alvarado Notice Issued Date-Time: 01/10/2019 12:47 Notice Type: IM Discharge Notice Notice Delivered To: Patient Relationship to Patient: Precinct Captain Name: Delivery Method: HAND - Hand Delivered Kim Days: Prior Verbal Notification: Recipient Understood Notice: Yes Recipient Signature: Yes Med Rec Note Co-signed by Attending: Coverage Notice Comment: Last DP export: 01/10/19 12:00 p Patient Name: KRISHNA NICK Page [phone] at 0754 All edits/amendments must be made on the electronic document DICTATION DATE: 01/11/19753 SET UP INSPECTOR: YOSHI 01/11/19 0754 RPT#: [id number] DC DATE:01/10/19 STATUS: DIS IN [facility] [address] [place] [address] END OF REPORT
== END 2019-01-10 16:01 | disposition home or self-care (01) | DRG 871 ==
LOC: D.ER 09:38 → D.M3 11:55
PROVIDERS: Emergency Medicine; Family Medicine; Internal Medicine Pulmonary Disease; ADMIT Internal Medicine Nephrology; ATTEND Internal Medicine Nephrology
PROC: 0B9G8ZX Drainage of Left Upper Lung Lobe, Via Natural or Artificial Opening Endoscopic, Diagnostic (ICD-10-PCS; principal; 2019-01-09 11:42)
DX: A41.9 Sepsis, unspecified organism (principal); J18.9 Pneumonia, unspecified organism; J96.01 Acute respiratory failure with hypoxia; G93.1 Anoxic brain damage, not elsewhere classified; N17.9 Acute kidney failure, unspecified; R04.2 Hemoptysis; Z68.42 Body mass index [BMI] 45.0-49.9, adult; D64.9 Anemia, unspecified; I10 Essential (primary) hypertension; E66.01 Morbid (severe) obesity due to excess calories

== ENCOUNTER → 2019-03-14 19:01 | Outpatient (CLI) | payer MEDICARE, OTHER ==
[2019-01-08 15:02] VITALS: BMI 46.0
[~2019-03-14 19:01] MED LIST changes: +OMNICEF300 MG PO; +SULFAMETHOXAZOL1 TA2 PO
== END | disposition home or self-care (01) ==
LOC: D.LABREF 19:01
PROVIDERS: ATTEND Orthopaedic Surgery
DX: M16.11 Unilateral primary osteoarthritis, right hip (principal)

== ENCOUNTER 2019-03-20 09:37 | Inpatient (IN) | payer MEDICARE, OTHER ==
[~2019-03-20] VITALS: Ht 180.3 cm; Wt 145.5 kg
[2019-04-29 12:03] LABS: APPEARANCE CLEAR (CLEAR); BILIRUBIN NEGATIVE (NEGATIVE); COLOR YELLOW (YELLOW); GLUCOSE NEGATIVE (NEGATIVE); KETONE NEGATIVE (NEGATIVE); NITRITE NEGATIVE (NEGATIVE); PROTEIN NEGATIVE (NEGATIVE); SPECIFIC GRAVITY 1.005 (1.005-1.020); UROBILINOGEN NORMAL (NORMAL)
[2019-05-06] VITALS: BP 141/83
[2019-05-06 09:32] VITALS: BMI 45.4
[2019-05-06 10:25] LABS: BASOPHILS 0.5 % (0-2); EOSINOPHILS 2.1 % (0-7); HEMATOCRIT 34.7 % (42.0-54.0); HEMOGLOBIN 11.7 g/dL (13.5-17.5); IMMATURE GRANULOCYTES 0.4 % (0-5); LYMPHOCYTES 27.1 % (15-50); MCH 32.5 pg (26.0-34.0); MCHC 33.7 g/dL (31.0-37.0); MCV 96.4 fL (80.0-100.0); MEAN PLATELET VOLUME 9.5 fL (7.4-10.4); MONOCYTES 8.8 % (2-11); NEUTROPHILS 61.1 % (40-80); PLATELET COUNT 192 10x3/uL (130-400); RDW 13.1 % (11.5-14.5); WBC 5.6 10x3/uL (4.8-10.8)
[2019-05-06 10:32] LABS: CALC OSMOLALITY 273 mosm/kg (275-300); CALCIUM 8.3 mg/dL (8.5-10.1); CARBON DIOXIDE 31.5 mmol/L (21.0-32.0); CHLORIDE - SERUM 101 mmol/L (98-107); GLUCOSE 111 mg/dL (74-106); POTASSIUM - SERUM 4.9 mmol/L (3.5-5.1); SODIUM 135 mmol/L (136-145); UREA NITROGEN 20 mg/dL (7-18); eGFR NON AFRICAN AMERICAN 80 mL/min (90-120)
[2019-05-06 10:42] LABS: APTT 28.5 SECONDS (22.8-39.4); INR 0.99 (0.85-1.17); PROTIME 12.6 SECONDS (11.6-15.0)
[2019-05-06 15:34] VITALS: BP 141/79
[2019-05-06 15:47] VITALS: BP 141/79; Ht 180.3 cm; Wt 145.5 kg
--- NOTE | 2019-05-06 15:55 | NUR ---
PATIENT RECIEVED FROM PACU POST RIGHT HIP REPLACEMENT. DRESSING C/D/I, 02 3L/NC DUE TO SLEEP APNEA. PICC RIGHT UPPER ARM WITH DRESSING INTACT. PATIENT SLEEPING WITH NO PAIN INDICATED AT THIS TIME.
--- NOTE | 2019-05-06 19:32 | NUR ---
PATIENT RESTING IN BED WITH NO S/S OF DISTRESS. AT BEDSIDE. BED IN LOWEST POSITION AND CALL LIGHT WITHIN REACH. ENCOURAGED THE PATIENT TO CALL IF HE HAS NEEDS. WILL CONTINUE TO MONITOR.
[2019-05-07] VITALS: BP 146/53
--- NOTE | 2019-05-07 01:51 | NUR ---
PATIENT C/O BEING UNABLE TO URINATE. PATIENT STATES HIS BLADDER FEELS FULL. BLADDER SCAN REVEALED 999+ ML
--- NOTE | 2019-05-07 02:13 | NUR ---
IN AND OUT CATH, 900 ML. PATIENT STATES HE FEELS MUCH BETTER. EXPLAINED TO THE PATIENT THAT IF HE IS UNABLE TO URINATE AND STARTS FEELING PRESSURE AGAIN TO NOTIFY ME. PATIENT VERBALIZED UNDERSTANDING. AT BEDSIDE.
--- NOTE | 2019-05-07 03:32 | NUR ---
PATIENT RESTING IN BED WITH EYES CLOSED AND NO S/S OF DISTRESS. BED IN LOWEST POSITION AND CALL LIGHT WITHIN REACH. WILL CONTINUE TO MONITOR.
[2019-05-07 04:00] VITALS: BP 112/61
[2019-05-07 06:49] LABS: HEMATOCRIT 34.7 % (42.0-54.0); HEMOGLOBIN 11.3 g/dL (13.5-17.5); MCH 32.3 pg (26.0-34.0); MCHC 32.6 g/dL (31.0-37.0); MCV 99.1 fL (80.0-100.0); MEAN PLATELET VOLUME 9.8 fL (7.4-10.4); RBC 3.5 10x6/uL (4.20-6.10); RDW 13.5 % (11.5-14.5); WBC 9.9 10x3/uL (4.8-10.8)
--- NOTE | 2019-05-07 08:04 | NUR ---
PATIENT RESTING IN BED, PAIN TOLERABLE WITH DILAUDID VENUE MANAGER. DRESSING C/D/I TO LEFT HIP. RESPIRATIONS REGULAR AND NONLABORED. CL IN REACH
[2019-05-07 08:28] LABS: ANION GAP 11.2 mmol/L (8-16); CALCIUM 8.1 mg/dL (8.5-10.1); CREATININE - SERUM 1.1 mg/dL (0.6-1.3); POTASSIUM - SERUM 5.2 mmol/L (3.5-5.1)
[2019-05-07 08:30] VITALS: BP 156/76
--- NOTE | 2019-05-07 10:47 | NUR ---
PATIENT ASSISTED TO CHAIR WITH PT ASSIST. TOLERATED WELL. PATIENT ALSO ABLE TO VOID 200 IN URINAL
[2019-05-07 12:48] VITALS: BP 109/55
--- NOTE | 2019-05-07 15:35 | MORECARE ---
CASE MANAGEMENT DISCHARGE SUMMARY PATIENT: KRISHNA NICK UNIT: [id number] ADM DATE: 05/06/19 AGE: 63 : 57 SEX: M ROOM/BED: D.2210 AUTHOR: FORTINO,DOC PHYSICIAN: REFERRING PHYSICIAN: CHARANJIT CORONADO MD DATE OF SERVICE: 05/07/19 Discharge Plan Patient Name: KRISHNA NICK Facility: [facility]:[place] : 1955 Planned Disposition: Home or Self Care Anticipated Discharge Date: Discharge Date: Expected LOS: Initial Reviewer: [email or web address] Initial Review Date: 05/06/2019 Generated: 05/07/19 4:34 pm Comments DCP- Discharge Planning Updated by [email or web address]: Swati Johnson on 05/07/19 2:[address] Patient Name: KRISHNA NICK Admission Status: Elective Accout number: [id number] Admission Date: 05-06-2019 : 1955 Admission Diagnosis: Attending: CHARANJIT CORONADO Current LOS: 1 Anticipated DC Date: Planned Disposition: Home or Self Care Primary Insurance: [facility] MEDICARE SOLUTIONS Discharge Planning Comments: CM met with patient to complete initial dc planning assessment. CM educated patient on the CM role and verbal consent given by patient to complete assessment. Patient lives at home with his where he is independent with his care. At discharge patient plans to return home and feels this is a safe discharge. CM discussed availability of home health, rehab services, and medical equipment. His stated that their son is building a ramp. He has a walker, Crutches, and a CPAP machine ([place] home pt, RAYRAY to continue to use them) He would like to do OP PT at [facility]. I called and made his appointment for 05/09 @2:30. I Spoke with Titus. Patient denied known discharge needs at this time. CM will continue to follow and will assist as needed with dc plans/needs. Tier Lift Truck Operator: Swati Johnson DCPIA - Discharge Planning Initial Assessment Updated by [id number]: Swati Johnson on 05/07/19 3:31 pm * Is the patient Alert and Oriented? Yes * How many steps to enter\exit or inside your home? 2/ramp * PCP MURPHY * [facility] * Preadmission Environment Home with Family * ADLs Independent * Equipment CPAP Crutch Walker * List name and contact numbers for known caregivers / representatives who currently or will assist patient after discharge: JACOB ()[phone] * Verbal permission to speak to the caregivers and representatives has been obtained from the patient. N/A * Community resources currently utilized None * Additional services required to return to the preadmission environment? Yes * Can the patient safely return to the preadmission environment? Yes * Has this patient been hospitalized within the prior 30 days at any hospital? No Patient Name: KRISHNA NICK Page [phone] at 1535 All edits/amendments must be made on the electronic document DICTATION DATE: 05/07/194 AFFILIATE MARKETING SPECIALIST: YOSHI 05/07/191533 RPT#: [id number] DC DATE: STATUS: ADM IN [facility] [address] [place] [address] END OF REPORT
--- NOTE | 2019-05-07 15:44 | MORECARE ---
CASE MANAGEMENT DISCHARGE SUMMARY PATIENT: KRISHNA NICK UNIT: [id number] ADM DATE: 05/06/19 AGE: 63 : 57 SEX: M ROOM/BED: D.2210 AUTHOR: FORTINO,DOC PHYSICIAN: REFERRING PHYSICIAN: CHARANJIT CORONADO MD DATE OF SERVICE: 05/07/19 Discharge Plan Patient Name: KRISHNA NICK Facility: [facility]:[place] : 1955 Planned Disposition: Home or Self Care Anticipated Discharge Date: Discharge Date: Expected LOS: Initial Reviewer: [email or web address] Initial Review Date: 05/06/2019 Generated: 05/07/19 4:43 pm Comments DCP- Discharge Planning Updated by [id number]: Swati Johnson on 05/07/19 2:[address] Patient Name: KRISHNA NICK Admission Status: Elective Accout number: [id number] Admission Date: 05-06-2019 : 1955 Admission Diagnosis: Attending: CHARANJIT CORONADO Current LOS: 1 Anticipated DC Date: Planned Disposition: Home or Self Care Primary Insurance: [facility] MEDICARE SOLUTIONS Discharge Planning Comments: CM met with patient to complete initial dc planning assessment. CM educated patient on the CM role and verbal consent given by patient to complete assessment. Patient lives at home with his where he is independent with his care. At discharge patient plans to return home and feels this is a safe discharge. CM discussed availability of home health, rehab services, and medical equipment. His stated that their son is building a ramp. He has a walker, Crutches, and a CPAP machine ([place] home pt, RAYRAY to continue to use them) He would like to do OP PT at [facility]. I called and made his appointment for 05/09 @2:30. I Spoke with Titus. Patient denied known discharge needs at this time. CM will continue to follow and will assist as needed with dc plans/needs. Traveling Sales Executive: Swati Johnson DCPIA - Discharge Planning Initial Assessment Updated by [email or web address]: Swati Johnson on 05/07/19 3:31 pm * Is the patient Alert and Oriented? Yes * How many steps to enter\exit or inside your home? 2/ramp * PCP MURPHY * [facility] [address] * Preadmission Environment Home with Family * ADLs Independent * Equipment CPAP Crutch Walker * List name and contact numbers for known caregivers / representatives who currently or will assist patient after discharge: JACOB ()[phone] * Verbal permission to speak to the caregivers and representatives has been obtained from the patient. N/A * Community resources currently utilized None * Additional services required to return to the preadmission environment? Yes * Can the patient safely return to the preadmission environment? Yes * Has this patient been hospitalized within the prior 30 days at any hospital? No External Providers External Provider: [facility] Next Contact Date: Service Request Date: Service Type: Resolution: Reviewer: Comments: Coverage Notice Reviewer: [email or web address] Trung Johnson Notice Issued Date-Time: 05/07/2019 15:20 Notice Type: Patient Choice Letter Notice Delivered To: Family Member Relationship to Patient: Spouse Automatic Log Cut Off Sawyer Name: JACOB Delivery Method: HAND - Hand Delivered Kmi Days: Prior Verbal Notification: Recipient Understood Notice: Yes Recipient Signature: Yes Med Rec Note Co-signed by Attending: Coverage Notice Comment: RAYRAY TO CONTINUE TO USE [facility] PATIENT FOR CPAP Last DP export: 05/07/19 2:35 pm Patient Name: KRISHNA NICK Page [phone] at 1544 All edits/amendments must be made on the electronic document DICTATION DATE: 05/07/19 1544 GRIPPER ATTACHER: YOSHI 05/07/19 1544 RPT#: [id number] DC DATE: STATUS: ADM IN [facility] [address] [place] [address] END OF REPORT
[2019-05-07 16:43] VITALS: BP 142/63
--- NOTE | 2019-05-07 18:13 | NUR ---
PATIENT ENCOURAGED TO CONTINUE COUGH AND DEEP BREATHING AND USE OF IS. NORCO GIVEN FOR CONTINUED REPORT OF PAIN AND TEMP OF 100.2
--- NOTE | 2019-05-07 19:25 | NUR ---
PT LYING IN BED ASLEEP, AT BEDSIDE. DENIES NEEDS. CL IN REACH, WILL CTM
[2019-05-07 20:00] VITALS: BP 133/66
--- NOTE | 2019-05-07 21:00 | NUR ---
HS MEDS GIVEN AT THIS TIME. PT STATES PAIN 7/10 IN RIGHT HIP. PERCOCET GIVEN ORDERED. DENIES OTHER NEEDS. WILL CTM
[2019-05-08] VITALS: BP 124/50
--- NOTE | 2019-05-08 00:30 | NUR ---
PT STATES PAIN IN RIGHT HIP 11/07, GAVE NORCO ORDERED. CL IN REACH, WILL CTM
[2019-05-08 04:00] VITALS: BP 94/61
[2019-05-08 05:54] LABS: BASOPHILS 0.2 % (0-2); EOSINOPHILS 0.2 % (0-7); HEMATOCRIT 33.2 % (42.0-54.0); HEMOGLOBIN 11.1 g/dL (13.5-17.5); IMMATURE GRANULOCYTES 0.6 % (0-5); LYMPHOCYTES 9.6 % (15-50); MCH 32.9 pg (26.0-34.0); MCHC 33.4 g/dL (31.0-37.0); MCV 98.5 fL (80.0-100.0); MEAN PLATELET VOLUME 10.6 fL (7.4-10.4); MONOCYTES 8.7 % (2-11); NEUTROPHILS 80.7 % (40-80); PLATELET COUNT 156 10x3/uL (130-400); RBC 3.37 10x6/uL (4.20-6.10); RDW 13.7 % (11.5-14.5)
[2019-05-08 06:09] LABS: WBC 12.4 10x3/uL (4.8-10.8)
[2019-05-08 06:19] LABS: ANION GAP 13.3 mmol/L (8-16); BILIRUBIN - TOTAL 0.36 mg/dL (0.2-1.3); CALCIUM 8.2 mg/dL (8.5-10.1); CARBON DIOXIDE 28.5 mmol/L (21.0-32.0); CREATININE - SERUM 1.3 mg/dL (0.6-1.3); POTASSIUM - SERUM 4.8 mmol/L (3.5-5.1); PROTEIN - SERUM 5.6 g/dL (6.4-8.2)
--- NOTE | 2019-05-08 08:32 | NUR ---
resting in bed, no distress noted, ice pack to right knee for edema, pedals +, cont to monitor pain
[2019-05-08 08:39] VITALS: BP 143/78
[2019-05-08 12:46] VITALS: BP 117/52
--- NOTE | 2019-05-08 15:33 | NUR ---
Rehab Note- Acute Inpatient Rehab prescreen order received. THe patient has [facility] insurance and will require a PreAuth prior to an acute inpatient rehab stay. OT Eval pending that will be needed for PreAuth process. PreAuth initiated, Ref#[id number]. Will continue to follow at this time & await determination from [facility] for possible acute inpatient rehab auth. Thank you for this referral! Rosemary Kirk RN Clinical Liaison, [facility] Rehab
[2019-05-08 16:45] VITALS: BP 119/60
--- NOTE | 2019-05-08 19:01 | NUR ---
1700 DRESSING CHANGED TO PICC LINE, SHERRY WELL, NO S/S OF INFECTION
--- NOTE | 2019-05-08 19:30 | NUR ---
PT SITTING UP IN BED WITHOUT DISTRESS, AOX4. AT BEDSIDE. DENIES NEEDS AT THIS TIME, CL IN REACH, WILL CTM
[2019-05-08 20:00] VITALS: BP 129/64
--- NOTE | 2019-05-08 21:45 | NUR ---
PT STATES PAIN 7/10 IN RIGHT HIP, GAVE OXY ORDERED. ICE PACK APPLIED TO RIGHT KNEE. DENIES OTHER NEEDS. CL IN REACH, WILL CTM
--- NOTE | 2019-05-09 03:15 | NUR ---
PT STATES PAIN 8/10 AFTER GETTING UP TO BATHROOM. GAVE OXY ORDERED. REINFORCED DRESSING TO RIGHT HIP D/T DRAINAGE. CAHNGED SHEETS D/T PT SWEATING WHILE SLEEPING. DENIES OTHER NEEDS. WILL CTM
[2019-05-09 07:08] LABS: BASOPHILS 0.1 % (0-2); EOSINOPHILS 1.1 % (0-7); HEMATOCRIT 30.1 % (42.0-54.0); HEMOGLOBIN 9.9 g/dL (13.5-17.5); IMMATURE GRANULOCYTES 0.3 % (0-5); LYMPHOCYTES 8.8 % (15-50); MCH 32.2 pg (26.0-34.0); MCHC 32.9 g/dL (31.0-37.0); MEAN PLATELET VOLUME 9.7 fL (7.4-10.4); MONOCYTES 7.6 % (2-11); NEUTROPHILS 82.1 % (40-80); PLATELET COUNT 148 10x3/uL (130-400); RBC 3.07 10x6/uL (4.20-6.10); RDW 13.8 % (11.5-14.5); WBC 10.5 10x3/uL (4.8-10.8)
[2019-05-09 07:22] LABS: ALBUMIN 2.7 g/dL (3.4-5.0); ANION GAP 10.5 mmol/L (8-16); BILIRUBIN - TOTAL 0.33 mg/dL (0.2-1.3); CALCIUM 8.6 mg/dL (8.5-10.1); CARBON DIOXIDE 30.9 mmol/L (21.0-32.0); CREATININE - SERUM 1.4 mg/dL (0.6-1.3); POTASSIUM - SERUM 4.4 mmol/L (3.5-5.1)
--- NOTE | 2019-05-09 08:00 | NUR ---
PATIENT AWAKE. LAYING ON BACK. JACOB SITTING IN CHAIR AT BEDSIDE. CL IN REACH. WCTM
[2019-05-09 08:45] VITALS: BP 130/46
--- NOTE | 2019-05-09 10:27 | OP ---
PATIENT NAME: KRISHNA NICK MEDICAL RECORD: [id number] :57 LOCATION:D.MS [id number] ADMISSION DATE:05/06/19 SURGEON: CHARANJIT CORONADO MD DATE OF OPERATION: 05/06/2019 PREOPERATIVE DIAGNOSIS: Degenerative arthritis of the right hip. POSTOPERATIVE DIAGNOSIS: Degenerative arthritis of the right hip. PROCEDURE: Right total hip arthroplasty. SURGEON: Charanjit Coronado MD NURSING SERVICES MANAGER: Christian Holland APN ANESTHESIA: General. INTRAOPERATIVE COMPLICATIONS: None. SUMMARY OF PATHOLOGIC FINDINGS: The patient had arthritis of the right hip consistent with preoperative radiographs. INDICATIONS: A 63-year-old gentleman, who has had a left total hip arthroplasty, lumbar surgery and right hip surgery, previous injections lasted a paucity of time and he elected to proceed with right total hip arthroplasty. IMPLANTS USED: The Accolade II TMZF coated stem, 132 size 6. Trident II titanium cluster hole acetabular shell, size 52 alpha E code, polyethylene 0-degree 36 mm alpha code E and a Biolox delta ceramic V40 femoral head, 26 mm x -2.5. ESTIMATED BLOOD LOSS: 200 cc. OPERATIVE SUMMARY IN DETAIL: After obtaining the appropriate preoperative orthopedic surgery consent as well as anesthetic consultation, evaluation, and clearance, the patient was brought to the operating room and placed on the operating table in the supine position. After general endotracheal anesthesia was administered, the patient was placed in left lateral decubitus position. All pressures points were well padded to include down leg peroneal pad as well as axillary roll. The patient was held firmly to the operating table using the vacuum pack suction system. Right lower extremity and hip were then prepped and draped in routine sterile fashion. This is a very obese gentleman. Curvilinear incision was made. After the appropriate timeout was taken and agreed upon by all, curvilinear incision was made over the greater trochanter, taken down over the IT band, which was split in line with fibers of the IT band and gluteus medius minimus attached to greater trochanter. These were reflected anteriorly and then the hip capsule was cut in a T-type fashion and saved for later reapproximation. Hip was dislocated. Femoral neck cut was made using the femoral neck cutting guide for the Accolade system and the femoral head was removed, approached the acetabulum showed good visibility. Circumferential labrectomy was followed by serial and sequential reaming for a size 50 Trident II cluster hole cup. This was put into place with excellent capture and no need for screws. Polyethylene was snapped into place and then checked with a Bette and it was in excellent position through the tight. Distal femur was then exposed. Serial and sequential reaming and broaching were done for a size 6 OPERATIVE REPORT [id number] KRISHNA NICK Accolade stem which was tamped into place. Trial was undertaken. It was felt that the -2 was the most appropriate -2 Biolox head was tamped in place with the Mckeon taper. The hip reduced, taken through range of motion and found to be stable in all planes. Intraoperative radiographs were taken and showed good limb length as well as good position and placement of the total hip. Wound was copiously irrigated and filled the class gram tobramycin. The hip capsule was closed with #2 Ethibond followed by reapproximation of the gluteus medius minimus back to the greater trochanter in a transosseous fashion using #5 Ethibond one middle did break intraosseously, it was left and seen on x-ray. Having completed the x-ray and verified good position and placement, IT band was closed with #2 Ethibond by Christian Holland. Having completed this, the skin was closed with #1 Vicryl, 2-0 Vicryl and skin sahra. Sterile dressings were applied. The patient was awakened and taken to recovery in stable condition. All final needle and sponge counts were correct. TRANSINT:[id number] Voice Confirmation ID: [id number] DOCUMENT ID: [id number] CLIFF CONNELL, CHARANJIT REARDON at 1027 CC: [id number] DICTATION DATE: 05/06/19 1407 SERVICE STATION MANAGER: 05/06/19 1754 ADM [facility] [address] [place] [address]
--- NOTE | 2019-05-09 11:50 | NUR ---
PATIENT BACK IN BED. DRESSING CHANGED TO RIGHT HIP. PREVIOUS DRESSING WAS SATURATED AND "POURED DOWN HIS LEG AND LEFT A PUDDLE IN THE FLOOR OF THE BATHROOM." YOUNG ROSENTHALMAJOR CASE DETECTIVE NURSE HAS ADVISED ME WE ARE WAITING ON THE MACHINE. CL IN REACH. JACOB IN ROOM. WCTM
--- NOTE | 2019-05-09 12:19 | NUR ---
PREVENA PLUS DRESSING APPLIED TO INCISION ON RIGHT HIP. PREVENA SETTINGS: -125MMHG LOW CONTINUOUS. DRESSING AIR TIGHT AND SEALED. PT TOLERATED WELL.
[2019-05-09 12:46] VITALS: BP 118/62
--- NOTE | 2019-05-09 13:51 | NUR ---
PATIENT IN CHAIR. JACOB OUT OF ROOM. CL IN REACH. NO NEEDS AT THIS TIME. WCTM
[2019-05-09 17:23] VITALS: BP 123/68
[2019-05-09 20:00] VITALS: BP 97/46
[2019-05-10] VITALS: BP 132/70
[2019-05-10 04:00] VITALS: BP 144/61
[2019-05-10 05:13] LABS: BASOPHILS 0.2 % (0-2); EOSINOPHILS 2.6 % (0-7); HEMATOCRIT 27.3 % (42.0-54.0); HEMOGLOBIN 9.1 g/dL (13.5-17.5); IMMATURE GRANULOCYTES 0.5 % (0-5); LYMPHOCYTES 15.9 % (15-50); MCH 32.2 pg (26.0-34.0); MCHC 33.3 g/dL (31.0-37.0); MCV 96.5 fL (80.0-100.0); MEAN PLATELET VOLUME 10.1 fL (7.4-10.4); MONOCYTES 11.1 % (2-11); NEUTROPHILS 69.7 % (40-80); PLATELET COUNT 177 10x3/uL (130-400); RBC 2.83 10x6/uL (4.20-6.10); RDW 13.5 % (11.5-14.5)
[2019-05-10 05:43] LABS: ALBUMIN 2.3 g/dL (3.4-5.0); ANION GAP 10.1 mmol/L (8-16); BILIRUBIN - TOTAL 0.37 mg/dL (0.2-1.3); CALCIUM 8.5 mg/dL (8.5-10.1); CARBON DIOXIDE 30.2 mmol/L (21.0-32.0); CREATININE - SERUM 1.2 mg/dL (0.6-1.3); POTASSIUM - SERUM 4.3 mmol/L (3.5-5.1); PROTEIN - SERUM 5.8 g/dL (6.4-8.2)
[2019-05-10] MEDS ORDERED: ELIQUIS2.5 MG PO (08:28)
[2019-05-10] MEDS ORDERED: PERCOCET 10-321 EAC1 PO (08:29)
[2019-05-10 09:32] VITALS: BP 162/71
--- NOTE | 2019-05-10 11:17 | MORECARE ---
CASE MANAGEMENT DISCHARGE SUMMARY PATIENT: KRISHNA NICK UNIT: [id number] ADM DATE: 05/06/19 AGE: 63 : 57 SEX: M ROOM/BED: D.2210 AUTHOR: FORTINO,DOC PHYSICIAN: REFERRING PHYSICIAN: CHARANJIT CORONADO MD DATE OF SERVICE: 05/10/19 Discharge Plan Patient Name: KRISHNA NICK Facility: [facility]:[place] : 1955 Planned Disposition: Home or Self Care Anticipated Discharge Date: Discharge Date: Expected LOS: Initial Reviewer: [id number] Initial Review Date: 05/06/2019 Generated: 05/10/19 12:17 pm DCP- Discharge Planning Updated by [id number]: Swati Johnson on 05/07/19 2:[address] Patient Name: KRISHNA NICK Admission Status: Elective Accout number: [id number] Admission Date: 05-06-2019 : 1955 Admission Diagnosis: Attending: CHARANJIT CORONADO Current LOS: 1 Anticipated DC Date: Planned Disposition: Home or Self Care Primary Insurance: [facility] MEDICARE SOLUTIONS Discharge Planning Comments: CM met with patient to complete initial dc planning assessment. CM educated patient on the CM role and verbal consent given by patient to complete assessment. Patient lives at home with his where he is independent with his care. At discharge patient plans to return home and feels this is a safe discharge. CM discussed availability of home health, rehab services, and medical equipment. His stated that their son is building a ramp. He has a walker, Crutches, and a CPAP machine ([place] home pt, RAYRAY to continue to use them) He would like to do OP PT at [facility] on [facility]. I called and made his appointment for 05/09 @2:30. I Spoke with Titus. Patient denied known discharge needs at this time. CM will continue to follow and will assist as needed with dc plans/needs. Interior Design Consultant: Swati Johnson DCPIA - Discharge Planning Initial Assessment Updated by [email or web address]: Swati Johnson on 05/07/19 3:31 pm * Is the patient Alert and Oriented? Yes * How many steps to enter\exit or inside your home? 2/ramp * PCP MURPHY * Pharmacy [facility] [address] * Preadmission Environment Home with Family * ADLs Independent * Equipment CPAP Crutch Walker * List name and contact numbers for known caregivers / representatives who currently or will assist patient after discharge: JACOB ()[phone] * Verbal permission to speak to the caregivers and representatives has been obtained from the patient. N/A * Community resources currently utilized None * Additional services required to return to the preadmission environment? Yes * Can the patient safely return to the preadmission environment? Yes * Has this patient been hospitalized within the prior 30 days at any hospital? No Coverage Notice Reviewer: [id number] Trung Johnson Notice Issued Date-Time: 05/07/2019 15:20 Notice Type: Patient Choice Letter Notice Delivered To: Family Member Relationship to Patient: Spouse Structural Steel Shop Supervisor Name: JACOB Delivery Method: HAND - Hand Delivered Kim Days: Prior Verbal Notification: Recipient Understood Notice: Yes Recipient Signature: Yes Med Rec Note Co-signed by Attending: Coverage Notice Comment: RAYRAY TO CONTINUE TO USE [facility] PATIENT FOR CPAP Last DP export: 05/07/19 2:44 pm Patient Name: KRISHNA NICK Page [phone] at 1117 All edits/amendments must be made on the electronic document DICTATION DATE: 05/10/191116 COMPENSATION ASSOCIATE: YOSHI 05/10/197 RPT#: [id number] DC DATE: STATUS: ADM IN [facility] [address] [place] [address] END OF REPORT
--- NOTE | 2019-05-10 11:24 | NUR ---
PATIENT UP IN CHAIR. CL IN REACH. JACOB IN CHAIR ACROSS ROOM. NO NEEDS AT THIS TIME. WCTM
--- NOTE | 2019-05-10 11:25 | MORECARE ---
CASE MANAGEMENT DISCHARGE SUMMARY PATIENT: KRISHNA NICK UNIT: [id number] ADM DATE: 05/06/19 AGE: 63 : 57 SEX: M ROOM/BED: D.2210 AUTHOR: FORTINO,DOC PHYSICIAN: REFERRING PHYSICIAN: CHARANJIT CORONADO MD DATE OF SERVICE: 05/10/19 Discharge Plan Patient Name: KRISHNA NICK Facility: [facility]:[place] : 1955 Planned Disposition: Home or Self Care Anticipated Discharge Date: Discharge Date: Expected LOS: Initial Reviewer: [email or web address] Initial Review Date: 05/06/2019 Generated: 05/10/19 12:25 pm Comments DCP- Discharge Planning Updated by [email or web address]: Swati Johnson on 05/10/19 10:[address] PATIENT WILL BE DISCHARGING HOME TODAY WITH HOME HEALTH. RAYRAY SIGNED AND PLACED IN CHART. IMM ALSO SIGNED AND PLACED IN CHART. RAYRAY WITH [facility] WILL SEND REFERRAL DCP- Discharge Planning Updated by [email or web address]: Swati Johnson on 05/07/19 2:[address] Patient Name: KRISHNA NICK Admission Status: Elective Accout number: [id number] Admission Date: 05-06-2019 : 1955 Admission Diagnosis: Attending: CHARANJIT CORONADO Current LOS: 1 Anticipated DC Date: Planned Disposition: Home or Self Care Primary Insurance: [facility] MEDICARE SOLUTIONS Discharge Planning Comments: CM met with patient to complete initial dc planning assessment. CM educated patient on the CM role and verbal consent given by patient to complete assessment. Patient lives at home with his where he is independent with his care. At discharge patient plans to return home and feels this is a safe discharge. CM discussed availability of home health, rehab services, and medical equipment. His stated that their son is building a ramp. He has a walker, Crutches, and a CPAP machine ([place]an home pt, RAYRAY to continue to use them) He would like to do OP PT at [facility] on [facility]. I called and made his appointment for 05/09 @2:30. I Spoke with Titus. Patient denied known discharge needs at this time. CM will continue to follow and will assist as needed with dc plans/needs. Gta: Swati Johnson DCPIA - Discharge Planning Initial Assessment Updated by [id number]: Swati Johnson on 05/07/19 3:31 pm * Is the patient Alert and Oriented? Yes * How many steps to enter\exit or inside your home? 2/ramp * PCP MURPHY * Pharmacy [facility] [address] * Preadmission Environment Home with Family * ADLs Independent * Equipment CPAP Crutch Walker * List name and contact numbers for known caregivers / representatives who currently or will assist patient after discharge: JACOB ()[phone] * Verbal permission to speak to the caregivers and representatives has been obtained from the patient. N/A * Community resources currently utilized None * Additional services required to return to the preadmission environment? Yes * Can the patient safely return to the preadmission environment? Yes * Has this patient been hospitalized within the prior 30 days at any hospital? No Coverage Notice Reviewer: [id number] - Swati Johnson Notice Issued Date-Time: 05/07/2019 15:20 Notice Type: Patient Choice Letter Notice Delivered To: Family Member Relationship to Patient: Spouse Events Associate Name: JACOB Delivery Method: HAND - Hand Delivered Kim Days: Prior Verbal Notification: Recipient Understood Notice: Yes Recipient Signature: Yes Med Rec Note Co-signed by Attending: Coverage Notice Comment: RAYRAY TO CONTINUE TO USE [facility] PATIENT FOR CPAP Last DP export: 05/10/19 10:17 a Patient Name: KRISHNA NICK Page [phone] at 1125 All edits/amendments must be made on the electronic document DICTATION DATE: 05/10/19 1125 HAND SOLE SEWER: YOSHI 05/10/19 1125 RPT#: [id number] DC DATE: STATUS: ADM IN [facility] [address] [place] [address] END OF REPORT
--- NOTE | 2019-05-10 11:46 | MORECARE ---
CASE MANAGEMENT DISCHARGE SUMMARY PATIENT: KRISHNA NICK UNIT: [id number] ADM DATE: 05/06/19 AGE: 63 : 57 SEX: M ROOM/BED: D.2210 AUTHOR: FORTINO,DOC PHYSICIAN: REFERRING PHYSICIAN: CHARANJIT CORONADO MD DATE OF SERVICE: 05/10/19 Discharge Plan Patient Name: RKISHNA NICK Facility: [facility]:[place] : 1955 Planned Disposition: Home or Self Care Anticipated Discharge Date: Discharge Date: Expected LOS: Initial Reviewer: [id number] Initial Review Date: 05/06/2019 Generated: 05/10/19 12:46 pm Comments DCP- Discharge Planning Updated by [email or web address]: Swati Johnson on 05/10/19 10:[address] PATIENT WILL BE DISCHARGING HOME TODAY WITH HOME HEALTH. RAYRAY SIGNED AND PLACED IN CHART. IMM ALSO SIGNED AND PLACED IN CHART. RAYRAY WITH [facility] WILL SEND REFERRAL DCP- Discharge Planning Updated by [email or web address]: Swati Johnson on 05/07/19 2:[address] Patient Name: KRISHNA NICK Admission Status: Elective Accout number: [id number] Admission Date: 05-06-2019 : 1955 Admission Diagnosis: Attending: CHARANJIT CORONADO Current LOS: 1 Anticipated DC Date: Planned Disposition: Home or Self Care Primary Insurance: [facility] MEDICARE SOLUTIONS Discharge Planning Comments: CM met with patient to complete initial dc planning assessment. CM educated patient on the CM role and verbal consent given by patient to complete assessment. Patient lives at home with his where he is independent with his care. At discharge patient plans to return home and feels this is a safe discharge. CM discussed availability of home health, rehab services, and medical equipment. His stated that their son is building a ramp. He has a walker, Crutches, and a CPAP machine ([place]rain[place] home pt, RAYRAY to continue to use them) He would like to do OP PT at [facility] on [facility]. I called and made his appointment for 05/09 @2:30. I Spoke with Titus. Patient denied known discharge needs at this time. CM will continue to follow and will assist as needed with dc plans/needs. Truck Hop: Swati Johnson DCPIA - Discharge Planning Initial Assessment Updated by [email or web address]: Swati Johnson on 05/07/19 3:31 pm * Is the patient Alert and Oriented? Yes * How many steps to enter\exit or inside your home? 2/ramp * PCP MURPHY * Pharmacy [facility] [address] * Preadmission Environment Home with Family * ADLs Independent * Equipment CPAP Crutch Walker * List name and contact numbers for known caregivers / representatives who currently or will assist patient after discharge: JACOB ()[phone] * Verbal permission to speak to the caregivers and representatives has been obtained from the patient. N/A * Community resources currently utilized None * Additional services required to return to the preadmission environment? Yes * Can the patient safely return to the preadmission environment? Yes * Has this patient been hospitalized within the prior 30 days at any hospital? No External Providers External Provider: [facility] Next Contact Date: Service Request Date: Service Type: Resolution: Reviewer: Comments: Coverage Notice Reviewer: [email or web address] Trung Johnson Notice Issued Date-Time: 05/07/2019 15:20 Notice Type: Patient Choice Letter Notice Delivered To: Family Member Relationship to Patient: Spouse Billing Customer Service Representative Name: JACOB Delivery Method: HAND - Hand Delivered Kim Days: Prior Verbal Notification: Recipient Understood Notice: Yes Recipient Signature: Yes Med Rec Note Co-signed by Attending: Coverage Notice Comment: RAYRAY TO CONTINUE TO USE [facility] FOR CPAP Reviewer: [id number] Trung Johnson Notice Issued Date-Time: 05/10/2019 8:45 Notice Type: IM Discharge Notice Notice Delivered To: Patient Relationship to Patient: Billing Customer Service Representative Name: Delivery Method: HAND - Hand Delivered Kim Days: Prior Verbal Notification: Recipient Understood Notice: Yes Recipient Signature: Yes Med Rec Note Co-signed by Attending: Coverage Notice Comment: Reviewer: [id number] Trung Johnson Notice Issued Date-Time: 05/10/2019 8:45 Notice Type: Patient Choice Letter Notice Delivered To: Patient Relationship to Patient: Billing Customer Service Representative Name: Delivery Method: HAND - Hand Delivered Kim Days: Prior Verbal Notification: Recipient Understood Notice: Yes Recipient Signature: Yes Med Rec Note Co-signed by Attending: Coverage Notice Comment: RAYRAY FOR [facility] Last DP export: 05/10/19 10:25 a Patient Name: KRISHNA NICK Page [phone] at 1146 All edits/amendments must be made on the electronic document DICTATION DATE: 05/10/19 1146 PAEDODONTIST: YOSHI 05/10/19 1146 RPT#: [id number] DC DATE: STATUS: ADM IN [facility] [address] [place] [address] END OF REPORT
--- NOTE | 2019-05-10 11:52 | NUR ---
Rehab Note- Acute Inpatient REhab prescreen order received. Recieved voicemail that the patient has been denied an inpatient acute rehab stay per the Extraction Operator at [facility]. A peer to peer can be set up prior to Saturday 05/13 by 1500 by calling [employer] @ [phone] Ext [phone]. Spoke with CARIDAD Cohen & stated that the patient is planning to discharge home. Thank you for this referral! ROBERT Fox Clinical Liaison, [facility] Rehab
[2019-05-10 13:55] VITALS: BP 127/56
--- NOTE | 2019-05-12 12:31 | MORECARE ---
CASE MANAGEMENT DISCHARGE SUMMARY PATIENT: KRISHNA NICK UNIT: [id number] ADM DATE: 05/06/19 AGE: 63 : 57 SEX: M ROOM/BED: D.2210 AUTHOR: FORTINO,DOC PHYSICIAN: REFERRING PHYSICIAN: CHARANJIT CORONADO MD DATE OF SERVICE: 05/12/19 Discharge Plan Patient Name: KRISHNA NICK Facility: [facility]:[place] : 1955 Planned Disposition: Home or Self Care Anticipated Discharge Date: Discharge Date: 05/10/2019 Expected LOS: Initial Reviewer: [id number] Initial Review Date: 05/06/2019 Generated: 05/12/19 1:30 pm Comments DCP- Discharge Planning Updated by [email or web address]: Swati Johnson on 05/10/19 10:[address] PATIENT WILL BE DISCHARGING HOME TODAY WITH HOME HEALTH. RAYARY SIGNED AND PLACED IN CHART. IMM ALSO SIGNED AND PLACED IN CHART. RAYRAY WITH [facility] WILL SEND REFERRAL DCP- Discharge Planning Updated by [id number]: Swati Johnson on 05/07/19 2:[address] Patient Name: KRISHNA NICK Admission Status: Elective Accout number: [id number] Admission Date: 05-06-2019 : 1955 Admission Diagnosis: Attending: CHARANJIT CORONADO Current LOS: 1 Anticipated DC Date: Planned Disposition: Home or Self Care Primary Insurance: [facility] MEDICARE SOLUTIONS Discharge Planning Comments: CM met with patient to complete initial dc planning assessment. CM educated patient on the CM role and verbal consent given by patient to complete assessment. Patient lives at home with his where he is independent with his care. At discharge patient plans to return home and feels this is a safe discharge. CM discussed availability of home health, rehab services, and medical equipment. His stated that their son is building a ramp. He has a walker, Crutches, and a CPAP machine ([place]ian home pt, RAYRAY to continue to use them) He would like to do OP PT at [facility] on [facility]. I called and made his appointment for 05/09 @2:30. I Spoke with Titus. Patient denied known discharge needs at this time. CM will continue to follow and will assist as needed with dc plans/needs. Business Project Manager: Swati Johnson DCPIA - Discharge Planning Initial Assessment Updated by [id number]: Swati Johnson on 05/07/19 3:31 pm * Is the patient Alert and Oriented? Yes * How many steps to enter\exit or inside your home? 2/ramp * PCP MURPHY * Pharmacy [facility] [address] * Preadmission Environment Home with Family * ADLs Independent * Equipment CPAP Crutch Walker * List name and contact numbers for known caregivers / representatives who currently or will assist patient after discharge: JACOB ()[phone] * Verbal permission to speak to the caregivers and representatives has been obtained from the patient. N/A * Community resources currently utilized None * Additional services required to return to the preadmission environment? Yes * Can the patient safely return to the preadmission environment? Yes * Has this patient been hospitalized within the prior 30 days at any hospital? No Coverage Notice Reviewer: [id number] Trung Johnson Notice Issued Date-Time: 05/07/2019 15:20 Notice Type: Patient Choice Letter Notice Delivered To: Family Member Relationship to Patient: Spouse Casino Supervisor Name: JACOB Delivery Method: HAND - Hand Delivered Kim Days: Prior Verbal Notification: Recipient Understood Notice: Yes Recipient Signature: Yes Med Rec Note Co-signed by Attending: Coverage Notice Comment: RAYRAY TO CONTINUE TO USE [facility] PATIENT FOR CPAP Reviewer: [id number] Trung Johnson Notice Issued Date-Time: 05/10/2019 8:45 Notice Type: IM Discharge Notice Notice Delivered To: Patient Relationship to Patient: Casino Supervisor Name: Delivery Method: HAND - Hand Delivered Kim Days: Prior Verbal Notification: Recipient Understood Notice: Yes Recipient Signature: Yes Med Rec Note Co-signed by Attending: Coverage Notice Comment: Reviewer: [id number] Trung Johnson Notice Issued Date-Time: 05/10/2019 8:45 Notice Type: Patient Choice Letter Notice Delivered To: Patient Relationship to Patient: Casino Supervisor Name: Delivery Method: HAND - Hand Delivered Kim Days: Prior Verbal Notification: Recipient Understood Notice: Yes Recipient Signature: Yes Med Rec Note Co-signed by Attending: Coverage Notice Comment: RAYRAY FOR [facility] Last DP export: 05/10/19 10:46 a Patient Name: KRISHNA NICK Page [phone] at 1231 All edits/amendments must be made on the electronic document DICTATION DATE: 05/12/19 123 REFERRAL AND INFORMATION AIDE: YOSHI 05/12/19 1230 RPT#: [id number] DC DATE:05/10/19 STATUS: DIS IN [facility] [address] [place] [address] END OF REPORT
== END 2019-05-10 16:16 | disposition home health service (06) | DRG 470 ==
LOC: D.SDCHOLD 04-29 10:00 → D.MS 05-06 08:30 → D.SDCHOLD 05-06 08:30 → D.MS 05-06 14:55 → D.SDCHOLD 05-06 16:30 → D.MS 05-10 16:16
PROVIDERS: Family Medicine; Orthopaedic Surgery; ADMIT Orthopaedic Surgery; ATTEND Orthopaedic Surgery
PROC: 05HB33Z Insertion of Infusion Device into Right Basilic Vein, Percutaneous Approach (ICD-10-PCS; 2019-05-06)
PROC: 0SR90J9 Replacement of Right Hip Joint with Synthetic Substitute, Cemented, Open Approach (ICD-10-PCS; principal; 2019-05-06 09:40)
DX: M16.11 Unilateral primary osteoarthritis, right hip (principal); Z68.41 Body mass index [BMI] 40.0-44.9, adult; I10 Essential (primary) hypertension; G47.33 Obstructive sleep apnea (adult) (pediatric); E66.01 Morbid (severe) obesity due to excess calories; J44.9 Chronic obstructive pulmonary disease, unspecified; Z87.891 Personal history of nicotine dependence; J30.2 Other seasonal allergic rhinitis

== ENCOUNTER → 2019-04-29 09:44 | Outpatient (CLI) | payer MEDICARE, OTHER ==
[2019-01-08 15:02] VITALS: BMI 46.0
== END | disposition home or self-care (01) ==
LOC: D.PAN 09:44
PROVIDERS: ATTEND Orthopaedic Surgery
DX: M16.11 Unilateral primary osteoarthritis, right hip (principal); Z01.810 Encounter for preprocedural cardiovascular examination; Z01.811 Encounter for preprocedural respiratory examination; Z01.812 Encounter for preprocedural laboratory examination

== ENCOUNTER → 2019-04-30 10:50 | Outpatient (CLI) | payer MEDICARE, OTHER ==
[2019-01-08 15:02] VITALS: BMI 46.0
[2019-05-01 07:11] LABS: IMMUNOGLOBULIN A 76 mg/dL (61-437); IMMUNOGLOBULIN G 839 mg/dL (700-1600); IMMUNOGLOBULIN M 20 mg/dL (20-172)
[2019-05-04 03:07] LABS: IMMUNOGLOBULIN E <2 IU/mL (6-495)
== END | disposition home or self-care (01) ==
LOC: D.LAB 10:50 → D.RT 11:30
PROVIDERS: ATTEND Internal Medicine Pulmonary Disease
DX: R06.00 Dyspnea, unspecified (principal); J44.9 Chronic obstructive pulmonary disease, unspecified

== ENCOUNTER → 2019-12-31 13:07 | Outpatient (CLI) | payer MEDICARE, OTHER ==
[2019-05-06 15:47] VITALS: BMI 44.7
[~2019-12-31 13:07] MED LIST changes: +PERCOCET 10-321 EAC1 PO
== END | disposition home or self-care (01) ==
LOC: D.MRI 12-30 15:30
PROVIDERS: ATTEND Clinical Nurse Specialist Family Health
DX: M25.521 Pain in right elbow (principal)

== ENCOUNTER 2020-01-16 14:58 | Inpatient (IN) | payer MEDICARE, OTHER ==
[~2020-01-16] VITALS: Ht 180.3 cm; Wt 138.0 kg
[2020-01-16] MEDS ORDERED: ZANAFLEX4 MG PO (15:09)
[2020-01-16] MEDS ORDERED: PHENERGAN25 M1 PO (15:12)
[2020-01-16] MEDS ORDERED: PROAIR HFA8.5 G1 INH (15:13)
[2020-01-16] MEDS ORDERED: ALLER-CHLOR4 MG PO (15:13)
[2020-01-16] MEDS ORDERED: MOBIC7.5 MG PO (15:14)
[2020-01-16] MEDS ORDERED: TESSALON PERLE100 MG PO (15:14)
[2020-01-16] MEDS ORDERED: VITAMIN B-121000 MCG (15:15)
[2020-01-16] MEDS ORDERED: FLUTICASONE PRO16 GM INH (15:15)
[2020-01-16 15:17] VITALS: BP 72/35
--- NOTE | 2020-01-16 16:00 | NUR ---
UNABLE TO OBTAIN URINE
[2020-01-16 16:12] LABS: BASOPHILS 0.1 % (0-2); EOSINOPHILS 0.4 % (0-7); HEMATOCRIT 37.9 % (42.0-54.0); HEMOGLOBIN 12.6 g/dL (13.5-17.5); IMMATURE GRANULOCYTES 0.6 % (0-5); LYMPHOCYTES 6.2 % (15-50); MCH 33.2 pg (26.0-34.0); MCHC 33.2 g/dL (31.0-37.0); MEAN PLATELET VOLUME 9.7 fL (7.4-10.4); MONOCYTES 7.1 % (2-11); NEUTROPHILS 85.6 % (40-80); PLATELET COUNT 166 10x3/uL (130-400); RBC 3.79 10x6/uL (4.20-6.10); RDW 13.4 % (11.5-14.5); WBC 14.1 10x3/uL (4.8-10.8)
[2020-01-16 16:20] LABS: CALC OSMOLALITY 275 mosm/kg (275-300); CALCIUM 8.7 mg/dL (8.5-10.1); CARBON DIOXIDE 31.9 mmol/L (21.0-32.0); CHLORIDE - SERUM 100 mmol/L (98-107); CREATININE - SERUM 2.2 mg/dL (0.6-1.3); GLUCOSE 143 mg/dL (74-106); SODIUM 135 mmol/L (136-145); UREA NITROGEN 24 mg/dL (7-18); eGFR NON AFRICAN AMERICAN 32 mL/min (90-120)
--- NOTE | 2020-01-16 16:34 | NUR ---
IMN TO R AC FOUND OUTSIDE PT ARM, CANNULA INTACT. NO ACTIVE BLEEDING. 2X2S TO SITE. FLUIDS CONTINUE TO INFUSE TO R UPPER ARM IMN.
[2020-01-16 16:36] LABS: ALBUMIN 3.2 g/dL (3.4-5.0); ALKALINE PHOSPHATASE 86 U/L (30-120); ALT (SGPT) 39 U/L (10-68); BILIRUBIN - TOTAL 0.37 mg/dL (0.2-1.3); CKMB 0.9 U/L (0.0-3.6); CREATINE KINASE 112 UL (21-232); MAGNESIUM - SERUM 2.4 mg/dL (1.8-2.4); PROTEIN - SERUM 6.5 g/dL (6.4-8.2); THYROID STIMULATING HORMONE 1.35 uIU/mL (0.36-3.74); TROPONIN-I < 0.017 ng/mL (0.000-0.060)
[2020-01-16 16:53] LABS: APTT 26.7 SECONDS (22.8-39.4); INR 0.97 (0.85-1.17); PROTIME 12.9 SECONDS (11.6-15.0)
[2020-01-16 16:56] LABS: D-DIMER-QUANTITATIVE 7.78 ug/mLFEU (0.20-0.54)
[2020-01-16 18:25] LABS: CKMB 2.1 U/L (0.0-3.6); CREATINE KINASE 148 UL (21-232)
[2020-01-16 18:27] LABS: TROPONIN-I < 0.017 ng/mL (0.000-0.060)
[2020-01-16 20:30] VITALS: BP 110/42
--- NOTE | 2020-01-16 20:53 | NUR ---
PT TO CT
[2020-01-16 22:51] VITALS: BP 128/63
--- NOTE | 2020-01-16 22:56 | NUR ---
COVID SWAB TO LAB
[2020-01-16 23:00] VITALS: BP 123/67
[2020-01-17 00:03] LABS: CALC OSMOLALITY 282 mosm/kg (275-300); CHLORIDE - SERUM 103 mmol/L (98-107); CKMB 3.7 U/L (0.0-3.6); CREATINE KINASE 176 UL (21-232); CREATININE - SERUM 1.8 mg/dL (0.6-1.3); GLUCOSE 148 mg/dL (74-106); POTASSIUM - SERUM 4.5 mmol/L (3.5-5.1); SODIUM 137 mmol/L (136-145); TROPONIN-I < 0.017 ng/mL (0.000-0.060); UREA NITROGEN 28 mg/dL (7-18); eGFR NON AFRICAN AMERICAN 41 mL/min (90-120)
[2020-01-17 02:16] VITALS: BP 88/49; BMI 42.5
--- NOTE | 2020-01-17 03:56 | NUR ---
V/S TEMP 98.3, B/P 80/40,P 101,RESP 19, O2 92% ON 2 L/M VIA N/C. CALL TO [facility] NEW ORDER TO PLACE PATIENT FLAT GIVE 500 ML OF NS BOLUS, THEN RESTART NS AT 125 ML/HR. EDUCATED PATIENT AND , BOLUS STARTED.
[2020-01-17 04:00] VITALS: BP 80/40
[2020-01-17 07:54] VITALS: BP 111/54
[2020-01-17 09:37] LABS: BILIRUBIN NEGATIVE (NEGATIVE); KETONE NEGATIVE (NEGATIVE); NITRITE NEGATIVE (NEGATIVE); UROBILINOGEN NORMAL mg/dL (< 2)
[2020-01-17 09:38] LABS: BASOPHILS 0.3 % (0-2); EOSINOPHILS 1.7 % (0-7); IMMATURE GRANULOCYTES 0.1 % (0-5); MCH 32.6 pg (26.0-34.0); MCHC 32.9 g/dL (31.0-37.0); MCV 99.3 fL (80.0-100.0); MONOCYTES 7.2 % (2-11); NEUTROPHILS 74.7 % (40-80); PLATELET COUNT 151 10x3/uL (130-400); RDW 13.5 % (11.5-14.5)
[2020-01-17 09:40] LABS: BACTERIA MODERATE /HPF (NONE SEEN); EPITHELIAL CELLS 0-5 /hpf (0-5); WHITE CELLS - URINE OCC HPF (0-1)
[2020-01-17 09:41] LABS: AMORPHOUS SEDIMENT <1+ /lpf (NONE SEEN)
[2020-01-17 09:41] LABS: HEMATOCRIT 28.6 % (42.0-54.0); HEMOGLOBIN 9.4 g/dL (13.5-17.5); RBC 2.88 10x6/uL (4.20-6.10); WBC 7.7 10x3/uL (4.8-10.8)
[2020-01-17 10:17] LABS: ALKALINE PHOSPHATASE 57 U/L (30-120); BILIRUBIN - TOTAL 0.18 mg/dL (0.2-1.3); CALC OSMOLALITY 286 mosm/kg (275-300); CHLORIDE - SERUM 109 mmol/L (98-107); CHOL - HDL RATIO 3.8 ratio (2.3-4.9); CHOLESTEROL, TOTAL 113 mg/dL (0-200); CKMB 1.9 U/L (0.0-3.6); CREATINE KINASE 143 UL (21-232); CREATININE - SERUM 1.5 mg/dL (0.6-1.3); GLUCOSE 149 mg/dL (74-106); HDL CHOLESTEROL 30 mg/dL (32-96); LDL CHOLESTEROL 67 mg/dL (0-100); LDL-HDL RATIO 2.2 ratio (1.5-3.5); MAGNESIUM - SERUM 1.8 mg/dL (1.8-2.4); PHOSPHOROUS 3.2 mg/dL (2.5-4.9); PRO BNP 114 pg/mL (0-125); SODIUM 139 mmol/L (136-145); TRIGLYCERIDE 81 mg/dL (30-200); TROPONIN-I < 0.017 ng/mL (0.000-0.060); UREA NITROGEN 28 mg/dL (7-18); eGFR NON AFRICAN AMERICAN 50 mL/min (90-120)
[2020-01-17 10:41] LABS: ALBUMIN 2.2 g/dL (3.4-5.0); ALT (SGPT) 27 U/L (10-68); CARBON DIOXIDE 22.2 mmol/L (21.0-32.0); POTASSIUM - SERUM 3.4 mmol/L (3.5-5.1); PROTEIN - SERUM 4.7 g/dL (6.4-8.2)
[2020-01-17 10:44] LABS: CALCIUM 6.8 mg/dL (8.5-10.1)
--- NOTE | 2020-01-17 10:51 | NUR ---
CRITICAL CA 6.8 CALLED TO FLOOR AND [facility] WHILE ROUNDING ON THE FLOOR.
[2020-01-17 14:01] VITALS: Ht 180.3 cm; Wt 138.0 kg
[2020-01-17 16:16] VITALS: BP 119/67
--- NOTE | 2020-01-17 20:00 | NUR ---
PATIENT RESTING IN BED WATCHING TV WITH AT BEDSIDE. NO S/S OF ACUTE DISTRESS. NO C/O AT THIS TIME. PATIENT IS ON 2L O2. PATIENT HAS RIGHT HAND, NORMAL SALINE @ 75 ML/HR. IV IS PATENT WITHOUT REDNESS, SWELLING, OR TENDERNESS. PATIENT IS A LEFT ARM RESERVE. PATIENT HAD A PENILE IMPLANT X2 DAYS AGAO AT [facility], PENIS AND SCROTUM ARE VERY SWOLLEN AND BRUISED. CALL LIGHT WITHIN REACH. WILL CONTINUE TO MONITOR.
[2020-01-17 20:17] VITALS: BP 111/51
[2020-01-17 22:43] VITALS: BP 142/62
--- NOTE | 2020-01-18 01:51 | NUR ---
PATIENT C/O HAVING TO PEE CONSTANTLY, BUT NOT FEELING LIKE HE WAS EMPTYING HIS BLADDER. I BLADDER SCANNED HIM AND GOT 931 ML. AKASH ROSE, WAS PAGED. AKASH ROSE, ORDERED A 14 [place] CATHETER TO BE PLACED *ONLY IF THERE WAS NO RESISTANCE*. AKASH INSTRUCTED ME TO CALL BACK IF WE COULDN'T GET A GREGG IN AND HE WOULD CALL DR. MURPHY TO SEE ABOUT A TRANSFER. AN ORDER FOR 1MG MORPHINE IV, ONE TIME DOSE, FOR GREGG INSERTION. WILL PLACE GREGG SOON I CAN GET AHOLD OF A 14 [place]ER FOELY.
--- NOTE | 2020-01-18 02:30 | NUR ---
14 ESTON[place] GREGG PLACED. MET WITH A LITTLE RESISTANCE BUT NO MUCH. PATIENT STATED "I FEEL MUCH BETTER NOW THANK YOU." PATIENT DENIES ANY PAIN AT THIS TIME. PATIENT PENIS AND SCCROTUM STILL VERY SWOLLEN AND BRUISED. CALL LIGHT WITHIN REACH. WILL CONTINUE TO MONITOR.
--- NOTE | 2020-01-18 04:04 | NUR ---
I have reviewed this patient and I concur with the Shift Assessment completed by the Licensed Practical Nurse today this shift.
[2020-01-18 05:33] VITALS: BP 142/78
[2020-01-18 06:03] LABS: BASOPHILS 0.6 % (0-2); EOSINOPHILS 3.7 % (0-7); HEMATOCRIT 29.2 % (42.0-54.0); HEMOGLOBIN 9.5 g/dL (13.5-17.5); IMMATURE GRANULOCYTES 0.2 % (0-5); LYMPHOCYTES 26.4 % (15-50); MCH 32.4 pg (26.0-34.0); MCHC 32.5 g/dL (31.0-37.0); MCV 99.7 fL (80.0-100.0); MEAN PLATELET VOLUME 9.9 fL (7.4-10.4); NEUTROPHILS 60.1 % (40-80); PLATELET COUNT 162 10x3/uL (130-400); RBC 2.93 10x6/uL (4.20-6.10); RDW 13.5 % (11.5-14.5); WBC 6.2 10x3/uL (4.8-10.8)
[2020-01-18 06:32] LABS: CALC OSMOLALITY 282 mosm/kg (275-300); CALCIUM 7.8 mg/dL (8.5-10.1); CARBON DIOXIDE 25.1 mmol/L (21.0-32.0); CHLORIDE - SERUM 110 mmol/L (98-107); CREATININE - SERUM 0.7 mg/dL (0.6-1.3); GLUCOSE 100 mg/dL (74-106); MAGNESIUM - SERUM 1.9 mg/dL (1.8-2.4); PHOSPHOROUS 2.1 mg/dL (2.5-4.9); POTASSIUM - SERUM 4.1 mmol/L (3.5-5.1); SODIUM 141 mmol/L (136-145); UREA NITROGEN 17 mg/dL (7-18); eGFR NON AFRICAN AMERICAN > 90 mL/min (90-120)
[2020-01-18 08:31] VITALS: BP 179/94
[2020-01-18 11:45] VITALS: BP 174/90
[2020-01-18] MEDS ORDERED: LEVOFLOXACIN500 MG PO (12:53)
[2020-01-18] MEDS ORDERED: FLOMAX0.4 MG PO (13:10)
--- NOTE | 2020-01-18 14:05 | NUR ---
SALINE LOCK REMOVED, GREGG CATH EMPTIED AND PROPER INSTRUCTIONS ON ASEPTIC TECHNIQUE OF CLEANING AND EMPTYING BAG, DISCHARGE INSTRUCTIONS WITH PATIENT AND . TO CAR VIA WHEELCHAIR.
--- NOTE | 2020-01-18 14:36 | MORECARE ---
CASE MANAGEMENT DISCHARGE SUMMARY PATIENT: KRISHNA NICK UNIT: [id number] ADM DATE: 01/16/20 AGE: 64 : 57 SEX: M ROOM/BED: D.2112 AUTHOR: HOSEA FREITAS PHYSICIAN: REFERRING PHYSICIAN: HARLAN MURPHY MD DATE OF SERVICE: 01/18/20 Discharge Plan Patient Name: KRISHNA NICK [facility] [facility] 1955 Planned Disposition: Home Anticipated Discharge Date: 01/18/20 Discharge Date: 01/18/2020 Expected LOS: 2 Initial Reviewer: [id number] Initial Review Date: 01/18/2020 Generated: 01/18/20 3:36 pm Patient Name: KRISHNA NICK Page [id number] at 1436 All edits/amendments must be made on the electronic document DICTATION DATE: 01/18/20 1436 MACHINE OR MACHINERY MECHANIC: YOSHI 01/18/20 1436 RPT#: [id number] DC DATE:01/18/20 STATUS: DIS IN [facility] [address] [place] [address] END OF REPORT
--- NOTE | 2020-01-18 14:44 | MORECARE ---
CASE MANAGEMENT DISCHARGE SUMMARY PATIENT: KRISHNA MOODY UNIT: [id number] ADM DATE: 01/16/20 AGE: 64 : 57 SEX: M ROOM/BED: D.2112 AUTHOR: HOSEA FREITAS PHYSICIAN: REFERRING PHYSICIAN: HARLAN MURPHY MD DATE OF SERVICE: 01/18/20 Discharge Plan Patient Name: KRISHNA MOODY Facility: [facility]:[place] : 1955 Planned Disposition: Home Anticipated Discharge Date: 01/18/20 Discharge Date: 01/18/2020 Expected LOS: 2 Initial Reviewer: [email or web address] Initial Review Date: 01/18/2020 Generated: 01/18/20 3:43 pm Comments DCP- Discharge Planning Updated by [email or web address]: Yehuda Watt on 01/18/20 1:[address] Patient Name: KRISHNA MOODY Admission Status: ER Accout number: [id number] Admission Date: 01-16-2020 : 1955 Admission Diagnosis: Attending: HARLAN MURPHY Current LOS: 2 Anticipated DC Date: 01-18-2020 Planned Disposition: Home Primary Insurance: [facility] MEDICARE SOLUTIONS Discharge Planning Comments: CM met with patient to complete initial dc planning assessment. CM educated patient on the CM role and verbal consent given to complete assessment. CM verified patient's address, phone number, and emergency contact phone numbers. Patient lives at home. At discharge patient plans to return home and feels this is a safe discharge. Patient stated that he has 4 steps to navigate to enter his home and he can do it safely. Patient states that he is independent and does not have any needs at this time. Patient states that he fills his medications at [facility] on [address] CM discussed availability of home health, rehab services, and medical equipment. Patient states no Lower level care needs at this time and refused HH, DME, SNF, and IPR. Transportation provider at discharge will be his , Michelle ([phone]). CM will continue to follow and will assist as needed with dc plans/needs. District Supervisor: Yehuda Watt DCPIA - Discharge Planning Initial Assessment Updated by [email or web address]: Yehuda Watt on 01/18/20 2:37 pm * Is the patient Alert and Oriented? Yes * How many steps to enter\exit or inside your home? 4/0 * PCP Dr. Murphy * [facility] [address] * Preadmission Environment Home with Family * ADLs Independent * Equipment Cane Walker * Other Equipment n/a * List name and contact numbers for known caregivers / representatives who currently or will assist patient after discharge: Michelle Moody - [phone] * Verbal permission to speak to the caregivers and representatives has been obtained from the patient. Yes * Community resources currently utilized None * Please name any agencies selected above. n/a * Additional services required to return to the preadmission environment? No * Can the patient safely return to the preadmission environment? Yes * Has this patient been hospitalized within the prior 30 days at any hospital? No Coverage Notice Reviewer: [id number] Trung Watt Notice Issued Date-Time: 01/18/2020 13:46 Notice Type: Patient Choice Letter Notice Delivered To: Patient Relationship to Patient: Self Tribunal Member Name: Delivery Method: HAND - Hand Delivered Kim Days: Prior Verbal Notification: Recipient Understood Notice: Yes Recipient Signature: Yes Med Rec Note Co-signed by Attending: Coverage Notice Comment: No needs, Refused Lower Levels of Care for IPR, SNF, HH, and DME. Last DP export: 01/18/20 1:36 p Patient Name: KRISHNA MOODY Page [id number] at 1444 All edits/amendments must be made on the electronic document DICTATION DATE: 01/18/20 1443 SPLITTING MACHINE TENDER: YOSHI 01/18/20 1443 RPT#: [id number] DC DATE:01/18/20 STATUS: DIS IN [facility] [address] [place] [address] END OF REPORT
--- NOTE | 2020-01-21 13:53 | MORECARE ---
CASE MANAGEMENT DISCHARGE SUMMARY PATIENT: KRISHNA MOODY UNIT: [id number] ADM DATE: 01/16/20 AGE: 64 : 57 SEX: M ROOM/BED: D.2112 AUTHOR: HOSEA FREITAS PHYSICIAN: REFERRING PHYSICIAN: HARLAN MURPHY MD DATE OF SERVICE: 01/21/20 Discharge Plan Patient Name: KRISHNA MOODY Facility: [facility]:[place] : 1955 Planned Disposition: Home Anticipated Discharge Date: 01/18/20 Discharge Date: 01/18/2020 Expected LOS: 2 Initial Reviewer: [email or web address] Initial Review Date: 01/18/2020 Generated: 01/21/20 2:53 pm Comments DCP- Discharge Planning Updated by [id number]: Yehuda Watt on 01/18/20 1:[address] Patient Name: KRISHNA MOODY Admission Status: ER Accout number: [id number] Admission Date: 01-16-2020 : 1955 Admission Diagnosis: Attending: HARLAN MURPHY Current LOS: 2 Anticipated DC Date: 01-18-2020 Planned Disposition: Home Primary Insurance: [facility] MEDICARE SOLUTIONS Discharge Planning Comments: CM met with patient to complete initial dc planning assessment. CM educated patient on the CM role and verbal consent given to complete assessment. CM verified patient's address, phone number, and emergency contact phone numbers. Patient lives at home. At discharge patient plans to return home and feels this is a safe discharge. Patient stated that he has 4 steps to navigate to enter his home and he can do it safely. Patient states that he is independent and does not have any needs at this time. Patient states that he fills his medications at [facility] on [address]. CM discussed availability of home health, rehab services, and medical equipment. Patient states no Lower level care needs at this time and refused HH, DME, SNF, and IPR. Transportation provider at discharge will be his , Michelle ([phone]). CM will continue to follow and will assist as needed with dc plans/needs. Motor Checker: Yehuda Watt DCPIA - Discharge Planning Initial Assessment Updated by [email or web address]: Yehuda Watt on 01/18/20 2:37 pm * Is the patient Alert and Oriented? Yes * How many steps to enter\exit or inside your home? 4/0 * PCP Dr. Murphy * [facility] [address] * Preadmission Environment Home with Family * ADLs Independent * Equipment Cane Walker * Other Equipment n/a * List name and contact numbers for known caregivers / representatives who currently or will assist patient after discharge: Michelle Moody - [phone] * Verbal permission to speak to the caregivers and representatives has been obtained from the patient. Yes * Community resources currently utilized None * Please name any agencies selected above. n/a * Additional services required to return to the preadmission environment? No * Can the patient safely return to the preadmission environment? Yes * Has this patient been hospitalized within the prior 30 days at any hospital? No Coverage Notice Reviewer: [id number] Trung Watt Notice Issued Date-Time: 01/18/2020 13:46 Notice Type: Patient Choice Letter Notice Delivered To: Patient Relationship to Patient: Self Jigger Crown Pouncing Machine Operator Name: Delivery Method: HAND - Hand Delivered Kim Days: Prior Verbal Notification: Recipient Understood Notice: Yes Recipient Signature: Yes Med Rec Note Co-signed by Attending: Coverage Notice Comment: No needs, Refused Lower Levels of Care for IPR, SNF, HH, and DME. Last DP export: 01/18/20 1:44 p Patient Name: KRISHNA MOODY Page [id number] at 1353 All edits/amendments must be made on the electronic document DICTATION DATE: 01/21/20 1353 TIE TAMPER: YOSHI 01/21/20 1353 RPT#: [id number] DC DATE:01/18/20 STATUS: DIS IN [facility] [address] [place] [address] END OF REPORT
== END 2020-01-18 14:07 | disposition home or self-care (01) | DRG 312 ==
LOC: D.ER 14:58 → D.M2 17:23
PROVIDERS: Family Medicine; ADMIT Emergency Medicine; ATTEND Emergency Medicine
DX: I95.1 Orthostatic hypotension (principal); N17.9 Acute kidney failure, unspecified; N39.0 Urinary tract infection, site not specified; D53.9 Nutritional anemia, unspecified; I10 Essential (primary) hypertension; G47.33 Obstructive sleep apnea (adult) (pediatric); F41.8 Other specified anxiety disorders; G89.29 Other chronic pain; M54.9 Dorsalgia, unspecified; J44.9 Chronic obstructive pulmonary disease, unspecified; I07.1 Rheumatic tricuspid insufficiency

== ENCOUNTER → 2020-06-29 15:03 | Outpatient (CLI) | payer MEDICARE, OTHER ==
[2020-05-22 06:15] VITALS: BMI 42.3
[~2020-06-29 15:03] MED LIST changes: +ALLER-CHLOR4 MG PO; +EZFE 200200 MG PO; +FLUTICASONE PRO16 GM INH; +GALZIN50 MG PO; +LEVOFLOXACIN500 MG PO; +MAG-OX 400 MG400 MG PO; +MOBIC7.5 MG PO; +PROAIR HFA8.5 G1 INH; +SUDOGEST SINUS1 EACH PO; +TESSALON PERLE100 MG PO; +VITAMIN B-121000 MCG
== END | disposition home or self-care (01) ==
LOC: D.LAB 15:03
PROVIDERS: ATTEND Internal Medicine Pulmonary Disease
DX: Z11.52 Encounter for screening for COVID-19 (principal)

== ENCOUNTER → 2020-07-03 10:43 | Outpatient (CLI) | payer MEDICARE, OTHER ==
[2020-05-22 06:15] VITALS: BMI 42.3
== END | disposition home or self-care (01) ==
LOC: D.RT 10:30
PROVIDERS: ATTEND Internal Medicine Pulmonary Disease
DX: J44.9 Chronic obstructive pulmonary disease, unspecified (principal); Z96.643 Presence of artificial hip joint, bilateral

== ENCOUNTER 2020-07-10 08:22 | Day surgery (SDC) | payer MEDICARE, OTHER ==
[~2020-07-10] VITALS: Ht 180.3 cm; Wt 137.4 kg
[~2020-07-10 08:22] MED LIST changes: +OXYCONTIN10 MG PO
[2020-07-10 08:52] LABS: CALC OSMOLALITY 280 mosm/kg (275-300); CALCIUM 8.5 mg/dL (8.5-10.1); CARBON DIOXIDE 34.9 mmol/L (21.0-32.0); CHLORIDE - SERUM 104 mmol/L (98-107); GLUCOSE 104 mg/dL (74-106); POTASSIUM - SERUM 4.2 mmol/L (3.5-5.1); SODIUM 140 mmol/L (136-145); UREA NITROGEN 18 mg/dL (7-18); eGFR NON AFRICAN AMERICAN 80 mL/min (90-120)
[2020-07-10 09:51] VITALS: Ht 180.3 cm; Wt 137.4 kg
[2020-07-10 09:58] LABS: BASOPHILS 0.6 % (0-2); EOSINOPHILS 2.2 % (0-7); HEMATOCRIT 38.3 % (42.0-54.0); HEMOGLOBIN 12.6 g/dL (13.5-17.5); LYMPHOCYTE ABS# 1.95 10x3/uL (1.32-3.57); LYMPHOCYTES 38.2 % (15-50); MCH 32.2 pg (26.0-34.0); MCHC 32.9 g/dL (31.0-37.0); MEAN PLATELET VOLUME 10.2 fL (7.4-10.4); MONOCYTES 8.8 % (2-11); NEUTROPHIL ABS# 2.56 10x3/uL (1.78-5.38); NEUTROPHILS 50.2 % (40-80); PLATELET COUNT 183 10x3/uL (130-400); RBC 3.91 10x6/uL (4.20-6.10); RDW 13.8 % (11.5-14.5); WBC 5.1 10x3/uL (4.8-10.8)
--- NOTE | 2020-07-11 08:22 | OP ---
PATIENT NAME: KRISHNA MOODY MEDICAL RECORD: [id number] :57 LOCATION:[facility] ADMISSION DATE: SURGEON: BELLO WELDON DO DATE OF OPERATION: 07/10/2020 PROCEDURE PERFORMED: Right elbow lateral epicondylectomy. PREOPERATIVE DIAGNOSIS: Right tennis elbow. POSTOPERATIVE DIAGNOSIS: Right tennis elbow. INDICATIONS: Mr. Moody is a 64-year-old male who has had right tennis elbow for quite some time. He has had several injections to no avail. He had an MRI showing a partial tear of the ECRB. He wants something done surgical. He is aware of the risks including infection, bleeding, continued pain, damage to nerves, vessels in the area and loss of motion of the elbow as well as failure of procedure, and infection. He signed the consent. SURGEON: Bello Weldon DO DESCRIPTION OF PROCEDURE: The patient was given a block by anesthesia and taken to the operative suite, laid in supine position, given general anesthetic and LMA was placed. He was given 2 grams of Ancef preoperatively. The right upper extremity was then prepped and draped in sterile fashion. A timeout was performed. Everyone was in agreeance with the correct side, site, patient and procedure. I then began to make an incision over the lateral epicondyle. I made careful dissection down to it after exsanguinating the right upper extremity with an Esmarch and was inflated to 250. It was up for 11 minutes. I made careful dissection down to the lateral epicondyle, cleared off the extensor digitorum communis and the extensor carpi radialis longus tendon and exposed the ECRB and it was very frayed. I removed the frayed tissue and took a rongeur and bit off the lateral epicondyle removing it and getting bleeding bone. I then put a 1.45 JuggerKnot anchor in after drilling and a stitched the tendon up and back and then tied it down. I then let the tourniquet down. I then closed with a 2-0 Vicryl in an inverted fashion. Dorothy Rich certified professional coder closed the incision with a 4-0 Monocryl running subcuticular stitch, placed Steri-Strips, Adaptic, 4 x 4, cast padding, and Antonio wrap on the elbow and then placed the wrist in a cock-up splint. He was awakened and taken to recovery in stable condition. BLOOD LOSS: Minimal. COMPLICATIONS: None. TRANSINT:[id number] Voice Confirmation ID: [id number] DOCUMENT ID: [id number] BELLO WELDON DO at 0822 CC: [id number] DICTATION DATE: 07/10/20 1249 SLAG EXPANDER: 07/10/20 2332 [facility] [place] 07/10/20 [id number] [place] [address]
== END 2020-07-10 13:55 | disposition home or self-care (01) ==
LOC: D.OPS 08:22
PROVIDERS: Anesthesiology; ATTEND Orthopaedic Surgery
DX: M77.11 Lateral epicondylitis, right elbow (principal); M25.521 Pain in right elbow; Z96.643 Presence of artificial hip joint, bilateral

== ENCOUNTER → 2020-10-06 08:45 | Outpatient (CLI) | payer MEDICARE, OTHER ==
[2020-07-10 09:51] VITALS: BMI 42.3
== END | disposition home or self-care (01) ==
LOC: D.RAD 08:45
PROVIDERS: ATTEND Nurse Practitioner Family
DX: M54.16 Radiculopathy, lumbar region (principal)